=== PATIENT | female | born 1935 | race Caucasian/White ===

== ENCOUNTER 2017-04-01 14:21 | Emergency (ER) | payer MEDICARE ==
--- NOTE | 2017-04-01 14:35 | ERPHSYRPT ---
- History of Present Illness Time Seen by Provider: 04/01/17 14:30 Source: patient, family Exam Limitations: no limitations Physician History: The patient is an 81-year-old female brought in from home by her son where she lives alone for not being quite "right" in her head for 3-4 days and not eating for 3 days. She lives alone. The patient has no specific complaints. The son states she is confused. She has a cough. She did not receive an influenza vaccination this year. She denies nausea, vomiting, or diarrhea. She has a long time smoker. She has no doctor and takes no medicines. Timing/Duration: day(s) (4), gradual onset, worse Severity: moderate Modifying Factors: Improves With: nothing Associated Symptoms: cough, loss of appetite Allergies/Adverse Reactions: No Known Drug Allergies Allergy (Verified 04/01/17 14:40) Home Medications: No Home Meds 1 ea PO DAILY 10/04/11 [History] Hx Tetanus, Diphtheria Vaccination/Date Given: No Hx Influenza Vaccination/Date Given: No Hx Pneumococcal Vaccination/Date Given: No - Review of Systems Constitutional: Weakness Eyes: No Symptoms Ears, Nose, & Throat: No Symptoms Respiratory: Cough Cardiac: No Chest Pain, No Edema, No Syncope Abdominal/Gastrointestinal: No Abdominal Pain, No Nausea, No Vomiting, No Diarrhea Genitourinary Symptoms: No Dysuria Musculoskeletal: No Back Pain, No Neck Pain Skin: No Rash Neurological: No Dizziness, No Focal Weakness, No Sensory Changes Psychological: No Symptoms Endocrine: No Symptoms Hematologic/Lymphatic: No Symptoms Immunological/Allergic: No Symptoms All Other Systems: Reviewed and Negative - Past Medical History Pertinent Past Medical History: Yes - Past Surgical History Past Surgical History: No - Social History Smoking Status: Current every day smoker How long have you smoked: 1 Exposure to second hand smoke: Yes Drug Use: none Patient Lives Alone: No - Nursing Vital Signs Nursing Vital Signs: Initial Vital Signs Temperature 99.6 F 04/01/17 14:25 Pulse Rate 118 H 04/01/17 14:25 Respiratory Rate 18 04/01/17 14:25 Blood Pressure 167/99 04/01/17 14:25 O2 Sat by Pulse Oximetry 92 L 04/01/17 14:25 Pain Scale Pain Intensity 0 - Physical Exam General Appearance: no apparent distress, cachetic, thin Eye Exam: PERRL/EOMI, eyes nml inspection Ears, Nose, Throat Exam: dry mucous membranes Neck Exam: normal inspection, non-tender, supple, full range of motion Respiratory Exam: rhonchi Cardiovascular Exam: regular rate/rhythm, normal heart sounds, normal peripheral pulses Gastrointestinal/Abdomen Exam: soft, normal bowel sounds, No tenderness, No mass Pelvic Exam: not done Rectal Exam: not done Back Exam: normal inspection, normal range of motion, No CVA tenderness, No vertebral tenderness Extremity Exam: normal inspection, normal range of motion, pelvis stable Neurologic Exam: alert, oriented x 3, cooperative, normal mood/affect, nml cerebellar function, nml station & gait, sensation nml, No motor deficits Skin Exam: normal color, warm, dry, No rash Lymphatic Exam: No adenopathy SpO2 Interpretation: normal Oxygen Delivery: Room Air - Course EKG Interpreted by Me: Sinus Rhythm, NORMAL AXIS, NORMAL INTERVALS, NORMAL QRS, ST Elev (V3 only) - Radiology Exams Chest X-ray Interpretation: Interpreted by me, Infiltrates (infiltrate right mid lung , no comparison) Ordered Tests: Active Orders 24 hr Category Date Time Status EKG-ER Only STAT Care 04/01/17 14:39 Active IV Insertion STAT Care 04/01/17 14:39 Active CHEST 2 VIEWS (PA AND LAT) Stat Exams 04/01/17 14:39 Taken CBC W DIFF Stat Lab 04/01/17 14:50 Completed CMP Stat Lab 04/01/17 14:50 Completed CULTURE, THROAT Stat Lab 04/01/17 14:50 Received LIPASE Stat Lab 04/01/17 14:50 Completed Lactic Acid Stat Lab 04/01/17 14:58 Completed Manual Differential NC Stat Lab 04/01/17 14:50 Completed STREP SCREEN-BETA A Stat Lab 04/01/17 14:50 Completed TROPONIN Q3H Lab 04/01/17 14:50 Completed TROPONIN Q3H Lab 04/01/17 17:45 Ordered TROPONIN Q3H Lab 04/01/17 20:45 Ordered TROPONIN Q3H Lab 04/01/17 23:45 Ordered TROPONIN Q3H Lab 04/02/17 02:45 Ordered UA W/RFX UR CULTURE Stat Lab 04/01/17 14:39 Ordered Medication Summary Discontinued Medications Generic Name Dose Route Start Last Admin Trade Name Freq PRN Reason Stop Dose Admin Aspirin 324 mg 04/01/17 15:28 04/01/17 15:50 Baby Aspirin 81 Mg Chew PO 04/01/17 15:29 324 mg STAT ONE Administration Sodium Chloride 500 mls @ 999 mls/hr 04/01/17 14:39 04/01/17 14:55 Sodium Chloride 0.9% 1000 Ml IV 04/01/17 15:09 999 mls/hr .Q31M STA Administration Sodium Chloride Confirm 04/01/17 14:51 Sodium Chloride 0.9% 1000 Ml Administered 04/01/17 14:52 Dose 1,000 mls @ ud .ROUTE .STK-MED ONE Nitroglycerin 0.4 mg 04/01/17 15:28 04/01/17 15:50 Nitrostat 0.4 Mg (Ed) SL 04/01/17 15:29 0.4 mg STAT ONE Administration Ondansetron HCl 4 mg 04/01/17 14:39 04/01/17 14:56 Zofran 4 Mg/2 Ml Vial IV 04/01/17 14:40 4 mg STAT ONE Administration Ondansetron HCl Confirm 04/01/17 14:51 Zofran 4 Mg/2 Ml Vial Administered 04/01/17 14:52 Dose 4 mg .ROUTE .STK-MED ONE Lab/Rad Data: Laboratory Result Diagrams 04/01/17 14:50 04/01/17 14:50 Laboratory Results 04/01/17 04/01/17 04/01/17 Range/Units 14:58 14:50 14:50 WBC (4.0-10.5) K/mm3 RBC (4.1-5.4) M/mm3 Hgb (12.0-16.0) gm/dl Hct (35-47) % MCV (78-100) fl MCH (26-32) pg MCHC (32-36) g/dl RDW (11.5-14.0) % Plt Count (150-450) K/mm3 MPV (6-9.5) fl Segmented Neutrophils (36.0-66.0) % Lymphocytes (Manual) (24-44) % Monocytes (Manual) (0.0-12.0) % Differential Comment Platelet Estimate (NORMAL) Sodium (136-145) mEq/L Potassium (3.5-5.1) mEq/L Chloride (98-107) mEq/L Carbon Dioxide (21-32) mEq/L Anion Gap (5-15) MEQ/L BUN (9-20) mg/dL Creatinine (0.55-1.30) mg/dl Estimated GFR ML/MIN Glucose (70-110) MG/DL Lactic Acid 1.5 (0.4-2.0) Calcium (8.5-10.1) mg/dL Total Bilirubin (0.2-1.0) mg/dL AST (15-37) U/L ALT (12-78) U/L Alkaline Phosphatase (46-116) U/L Troponin I 2.076 H* (0.000-0.056) ng/ml Serum Total Protein (6.4-8.2) gm/dL Albumin (3.4-5.0) g/dL Lipase (73-393) U/L Influenza Type A Ag POSITIVE (NEGATIVE) Influenza Type B Ag NEGATIVE (NEGATIVE) RSV (PCR) NEGATIVE (Negative) Streptococcus Screen (Negative) 04/01/17 04/01/17 04/01/17 Range/Units 14:50 14:50 14:50 WBC 9.9 (4.0-10.5) K/mm3 RBC 5.18 (4.1-5.4) M/mm3 Hgb 15.6 (12.0-16.0) gm/dl Hct 44.8 (35-47) % MCV 86.5 (78-100) fl MCH 30.1 (26-32) pg MCHC 34.8 (32-36) g/dl RDW 13.3 (11.5-14.0) % Plt Count 216 (150-450) K/mm3 MPV 10.4 H (6-9.5) fl Segmented Neutrophils 84 H (36.0-66.0) % Lymphocytes (Manual) 14 L (24-44) % Monocytes (Manual) 2 (0.0-12.0) % Differential Comment NORMAL Platelet Estimate NORMAL (NORMAL) Sodium 134 L (136-145) mEq/L Potassium 3.3 L (3.5-5.1) mEq/L Chloride 92 L (98-107) mEq/L Carbon Dioxide 26.5 (21-32) mEq/L Anion Gap 18.7 H (5-15) MEQ/L BUN 28 H (9-20) mg/dL Creatinine 0.90 (0.55-1.30) mg/dl Estimated GFR > 60 ML/MIN Glucose 136 H (70-110) MG/DL Lactic Acid (0.4-2.0) Calcium 9.3 (8.5-10.1) mg/dL Total Bilirubin 0.70 (0.2-1.0) mg/dL AST 56 H (15-37) U/L ALT 24 (12-78) U/L Alkaline Phosphatase 74 (46-116) U/L Troponin I (0.000-0.056) ng/ml Serum Total Protein 7.3 (6.4-8.2) gm/dL Albumin 3.1 L (3.4-5.0) g/dL Lipase 160 (73-393) U/L Influenza Type A Ag (NEGATIVE) Influenza Type B Ag (NEGATIVE) RSV (PCR) (Negative) Streptococcus Screen NEGATIVE (Negative) - Progress Progress: unchanged Progress Note: 04/01/17 15:30 Pt has no complaints of chest pain or SOB. I did an EKG due to mild weakness for [address] elevation on V3 only. Will give ASA and NG SL and repeat EKG. 04/01/17 15:54 Repeat EKG again shows ST elevation in V3. I discussed pt with Dr Garcia at [facility] who accepts pt without calling a STEMI. Counseled pt/family regarding: lab results, diagnosis, rad results - Departure Time of Disposition: 15:52 Departure Disposition: Transfer (Transfer to [facility] ER per Dr Garcia.) Clinical Impression: Elevated troponin, Influenza A, Pulmonary infiltrate, Hypokalemia Condition: Stable Critical Care Time: No Referrals: LULU ROCKWELL [Primary Care Provider] -
[2017-04-01] MEDS ORDERED: Zofran 4 MG/2 ML VIAL IV ONE (14:39)
[2017-04-01] MEDS ORDERED: Zofran 4 MG/2 ML VIAL ONE (14:51)
[2017-04-01] MEDS ORDERED: Sodium Chloride 0.9% 1000 ML 1,000 ML ONE (14:51)
[2017-04-01 15:08] LABS: Granulocyte Absolute (ANC) 8.28 (1.4-6.9); Hematocrit 44.8 % (35-47); Hemoglobin 15.6 gm/dl (12.0-16.0); Mean Cell Volume 86.5 fl (78-100); Mean Corpuscular Hemoglobin 30.1 pg (26-32); Mean Corpuscular Hgb Concent. 34.8 g/dl (32-36); Mean Platelet Volume 10.4 fl (6-9.5); Platelet Count 216 K/mm3 (150-450); Red Blood Count 5.18 M/mm3 (4.1-5.4); Red Cell Distribution Width 13.3 % (11.5-14.0); White Blood Count 9.9 K/mm3 (4.0-10.5)
[2017-04-01 15:16] LABS: ALBUMIN 3.1 g/dL (3.4-5.0); ALKALINE PHOSPHATASE 74 U/L (46-116); ANION GAP 18.7 MEQ/L (5-15); BLOOD UREA NITROGEN 28 mg/dL (9-20); CHLORIDE 92 mEq/L (98-107); Calcium 9.3 mg/dL (8.5-10.1); Carbon Dioxide 26.5 mEq/L (21-32); EST GLOMERULAR FILTRATION RATE > 60 ML/MIN; Glucose 136 MG/DL (70-110); LIPASE 160 U/L (73-393); Potassium 3.3 mEq/L (3.5-5.1); SGOT/AST 56 U/L (15-37); SGPT/ALT 24 U/L (12-78); SODIUM 134 mEq/L (136-145); Total Protein 7.3 gm/dL (6.4-8.2)
[2017-04-01] MEDS ORDERED: Nitrostat 0.4 MG (ED) SL ONE ×2 (15:28→15:57)
[2017-04-01] MEDS ORDERED: BABY ASPIRIN 81 MG CHEW PO ONE (15:28)
[2017-04-01 15:33] LABS: Lymphocytes 14 % (24-44); Monocyte 2 % (0.0-12.0); Neutrophils 84 % (36.0-66.0); Platelet Estimate NORMAL (NORMAL); Total Cells Counted 100
[2017-04-01 15:41] LABS: INFLUENZA A POSITIVE (NEGATIVE); INFLUENZA B NEGATIVE (NEGATIVE); RESPIRATORY SYNCTIAL VIRUS NEGATIVE (Negative)
[2017-04-01 15:55] VITALS: BP 159/75; PULSE 104; O2SAT 97
[2017-04-01] MEDS ORDERED: BABY ASPIRIN 81 MG CHEW ONE (15:57)
[2017-04-01 17:08] LABS: Appearance SLIGHTLY CLOUDY (CLEAR); Bacteria MANY /HPF (NEGATIVE); Bilirubin NEGATIVE (NEGATIVE); Blood 250 Ery/ul (0-5); Epithelial Cells FEW /HPF (FEW); Glucose NEGATIVE (NEGATIVE); Ketones SMALL (NEGATIVE); Leukocyte Esterase NEGATIVE (NEGATIVE); Mucus SLIGHT /HPF (NEGATIVE); Nitrite NEGATIVE (NEGATIVE); Protein,Urine Dip 500 (Negative); Specific Gravity 1.015 (1.005-1.025); Urobilinogen NORMAL mg/dL (0-1)
--- NOTE | 2017-04-01 21:51 | XRAY ---
Indication: Cough. Weakness. Comparison: None PA/lateral chest hyperinflated with right middle lobe infiltrate/atelectasis. Remaining heart and left lung unremarkable. Bony thorax intact with mild osteopenia and degenerative changes. Impression: 1. Right middle lobe infiltrate/atelectasis. Correlate clinically. 2. COPD.
== END 2017-04-01 16:19 | disposition short-term general hospital (02) ==
LOC: ED 14:21
DX: J10.00 Influenza due to other identified influenza virus with unspecified type of pneumonia (principal); R77.8 Other specified abnormalities of plasma proteins; E87.6 Hypokalemia; R53.1 Weakness
CPT/HCPCS: 36000; 36415; 71046; 80053; 81000; 83605; 83690; 84484; 85025; 87070; 87086; 87430; 87631; 93005; 96360; 96374; 99285; J2405; A9270-GY

== ENCOUNTER 2017-04-17 11:56 | Observation (INO) | payer MEDICARE ==
[2017-04-17] MEDS ORDERED: MORPHINE SULFATE 2 MG INJ IV PRN (12:54)
[2017-04-17] MEDS ORDERED: Sodium Chloride 0.9% 1000 ML 1,000 ML IV STA (12:54)
[2017-04-17] MEDS ORDERED: Zofran 4 MG/2 ML VIAL IV PRN (12:54)
[2017-04-17 13:28] LABS: BASOPHIL % 0.3 % (0.0-0.4); Basophil (Absolute #) 0.03 (0-0.4); Granulocytes % 75.6 % (36.0-66.0); Hematocrit 45.2 % (35-47); Hemoglobin 14.5 gm/dl (12.0-16.0); Lymphocyte (Absolute #) 1.47 (1.0-4.6); Mean Cell Volume 91.7 fl (78-100); Mean Corpuscular Hemoglobin 29.4 pg (26-32); Mean Corpuscular Hgb Concent. 32.1 g/dl (32-36); Mean Platelet Volume 10.1 fl (6-9.5); Monocyte (Absolute #) 0.79 (0.0-1.3); Monocytes % 8.1 % (0.0-12.0); Platelet Count 265 K/mm3 (150-450); Red Blood Count 4.93 M/mm3 (4.1-5.4); Red Cell Distribution Width 14.2 % (11.5-14.0); White Blood Count 9.8 K/mm3 (4.0-10.5)
[2017-04-17 14:06] LABS: ALBUMIN 3.5 g/dL (3.5-5.0); ALKALINE PHOSPHATASE 82 U/L (38-126); AMYLASE 122 U/L (30-110); ANION GAP 13.2 MEQ/L (5-15); BLOOD UREA NITROGEN 19 mg/dL (7-17); CHLORIDE 103 mmol/L (98-107); Calcium 9.2 mg/dL (8.4-10.2); Carbon Dioxide 27 mmol/L (22-30); Creatinine 1 0.66 mg/dL (0.52-1.04); Glucose 75 mg/dL (74-106); LIPASE 325 U/L (23-300); Potassium 3.7 mmol/L (3.5-5.1); SGOT/AST 55 U/L (14-36); SGPT/ALT 30 U/L (0-35); SODIUM 139 mmol/L (137-145); Total Protein 6.3 gm/dL (6.3-8.2)
[2017-04-17 14:39] LABS: Slide Review 1 YES
--- NOTE | 2017-04-17 14:45 | XRAY ---
Indication: Epigastric pain. Multiple contiguous axial images obtained through the abdomen and pelvis without contrast as ordered. Comparison: None Lung bases demonstrates minimal bilateral atelectasis/scarring. No infiltrate or effusion. Heart is not enlarged. Small hiatal hernia. Noncontrasted stomach and bowel loops appear nonobstructed. Normal appendix. No free fluid/air. Urinary bladder markedly distended concerning for outlet obstruction versus neurogenic bladder. Scattered hepatic/splenic calcified granulomas. Remaining liver, gallbladder, pancreas, spleen, adrenal glands, kidneys, ureters, and uterus appear unremarkable for noncontrast exam. Moderate scattered vascular calcifications. Distal aorta demonstrates 2 fusiform aneurysms both measuring 3.5 x 3.5 cm seen one after the other. Osseous structures intact with mild degenerative changes throughout the spine greatest at the L4-S1 levels. Impression: 1. Abnormally distended urinary bladder. Rule out outlet obstruction versus neurogenic bladder. 2. 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 3. Small hiatal hernia and evidence for old granulomatous disease. CT DI 8.07
[2017-04-17] MEDS: Sodium Chloride 0.9% 1000 ML 1,000 ML IV SCH (14:59)
[2017-04-17] MEDS ORDERED: Nitrostat 0.4 MG Tablet SL PRN (15:30)
[2017-04-17 15:46] LABS: Appearance CLEAR (CLEAR); Bilirubin NEGATIVE (NEGATIVE); Blood NEGATIVE Ery/ul (0-5); Glucose NEGATIVE (NEGATIVE); Ketones NEGATIVE (NEGATIVE); Leukocyte Esterase NEGATIVE (NEGATIVE); Nitrite NEGATIVE (NEGATIVE); Protein,Urine Dip NEGATIVE (Negative); Specific Gravity 1.005 (1.005-1.025); Urobilinogen NORMAL mg/dL (0-1)
[2017-04-17] MEDS: Zestril 10 MG PO SCH (15:49)
[2017-04-17] MEDS: Nicoderm CQ 21 MG TOP SCH (15:49)
[2017-04-17 15:54] LABS: TROPONIN 0.031 ng/mL (0.000-0.034)
[2017-04-17] MEDS: DELTASONE 10 MG PO SCH (16:08)
[2017-04-17] MEDS: DUONEB 0.5-3 MG/3 ml Neb IH SCH (20:02)
[2017-04-17] MEDS: Pepcid 20 MG PO SCH (21:25)
[2017-04-17] MEDS: Lopressor 25MG Tab PO SCH (21:25)
[2017-04-17] MEDS ORDERED: ZOCOR 20MG PO SCH (22:00)
[2017-04-17] MEDS ORDERED: Klonopin 0.5 MG PO SCH (22:00)
[2017-04-17] MEDS ORDERED: LIPITOR 40MG PO SCH (22:00)
[2017-04-18] MEDS: Sodium Chloride 0.9% 1000 ML 1,000 ML IV SCH ×2 (01:06→11:11)
[2017-04-18] MEDS: DUONEB 0.5-3 MG/3 ml Neb IH SCH (07:57)
[2017-04-18] MEDS: Pepcid 20 MG PO SCH (09:56)
[2017-04-18] MEDS: DELTASONE 10 MG PO SCH (09:56)
[2017-04-18] MEDS: Lopressor 25MG Tab PO SCH (09:56)
[2017-04-18] MEDS: Zestril 10 MG PO SCH (09:56)
[2017-04-18] MEDS: Nicoderm CQ 21 MG TOP SCH (10:08)
[2017-04-18 11:10] VITALS: BP 148/62; PULSE 76; O2SAT 96
--- NOTE | 2017-04-18 11:52 | PCM.SSS ---
History of Present Illness - Chief Complaint Chief Complaint: epigastric abdominal pain for 2 days History of Present Illness: is a 81 year old female.came with abdominal pain. - Review of Systems Constitutional: No Fever, No Chills Eyes: No Symptoms Ears, Nose, & Throat: No Symptoms Respiratory: No Cough, No Short Of Breath Cardiac: No Chest Pain, No Edema, No Syncope Abdominal/Gastrointestinal: No Abdominal Pain, No Nausea, No Vomiting, No Diarrhea Genitourinary Symptoms: No Dysuria Musculoskeletal: No Back Pain, No Neck Pain Skin: No Rash Neurological: No Dizziness, No Focal Weakness, No Sensory Changes Psychological: No Symptoms Endocrine: No Symptoms Hematologic/Lymphatic: No Symptoms Immunological/Allergic: No Symptoms Medications & Allergies Home Medications: Home Medication List Albuterol/Ipratropium 3ml Neb* [DUONEB 0.5-3 MG/3 ml Neb] 3 ml IH TID [History Confirmed 04/17/17] Aspirin [Aspirin EC] 1 tab PO DAILY 04/17/17 [History Confirmed 04/17/17] Atorvastatin Calcium [Lipitor 40Mg] 40 mg PO HS 04/17/17 [History Confirmed 01/23] Clonazepam [Clonazepam] 0.25 mg PO HS 04/17/17 [History Confirmed 04/17/17] Famotidine 20 mg [Pepcid 20 MG] 20 mg PO BID 04/17/17 [History Confirmed 04/17/17] Lisinopril [Lisinopril] 10 mg PO DAILY 04/17/17 [History Confirmed 04/17/17] Metoprolol Tartrate [Metoprolol Tartrate] 25 mg PO BID 04/17/17 [History Confirmed 04/17/17] Nicotine [Nicotine Patch] 21 mg TOP DAILY 04/17/17 [History Confirmed 04/17/17] Nitroglycerin [Nitroglycerin] 0.4 mg SL UD 04/17/17 [History Confirmed 04/17/17] Prednisone 10 mg [Deltasone 10 mg] 10 mg PO DAILY 04/17/17 [History Confirmed 04/17/17] Allergies/Adverse Reactions: Allergies Allergy/AdvReac Type Severity Reaction Status Date / Time metronidazole [From Flagyl] AdvReac Severe Verified 04/17/17 12:54 - Past Medical History Past Medical History: Yes Neurological History: No Pertinent History ENT History: Cataracts Cardiac History: High Cholesterol, Hypertension, Myocardial Infarction (ME) Respiratory History: CHF, COPD Musculoskelatal History: Arthritis, Fractures GI Medical History: No Pertinent History, Ulcer History: No Pertinent History Pyscho-Social History: Anxiety - Past Surgical History Past Surgical History: No Other Surgical History: L LE fx - Social History Smoking Status: Current every day smoker How long have you smoked: 1 Exposure to second hand smoke: Yes Alcohol: None Drug Use: none - Physical Exam Vital Signs: Vital Signs - 24 hr Temp Pulse Resp BP Pulse Ox 04/18/17 11:09 98.2 F 76 16 148/62 96 04/18/17 09:16 114 H 20 97 04/18/17 08:01 87 18 99 04/18/17 07:11 98.1 F 77 16 150/65 98 04/18/17 04:00 98.3 F 77 18 113/56 99 04/18/17 00:00 97.9 F 88 18 102/50 95 04/17/17 20:25 99 H 16 98 04/17/17 20:03 103 H 16 90 L 04/17/17 20:00 98.6 F 108 H 18 144/65 89 L 04/17/17 15:46 98.0 F 88 16 135/60 91 L 04/17/17 13:00 98.4 F 100 H 16 207/106 92 L 04/17/17 12:44 98.4 F 100 H 207/106 04/17/17 12:42 98.4 F 100 H 16 207/106 92 L Oxygen-Last 24 hours O2 Percentage 2 Liters = 28% O2 Percentage 2 Liters = 28% O2 Percentage 2 Liters = 28% O2 Percentage 2 Liters = 28% General Appearance: no apparent distress, alert Neurologic Exam: alert, oriented x 3, cooperative, normal mood/affect, nml cerebellar function, nml station & gait, sensation nml, No motor deficits Eye Exam: PERRL/EOMI, eyes nml inspection Ears, Nose, Throat Exam: normal ENT inspection, TMs normal, pharynx normal, moist mucous membranes Neck Exam: normal inspection, non-tender, supple, full range of motion Respiratory Exam: normal breath sounds, lungs clear, No respiratory distress Cardiovascular Exam: regular rate/rhythm, normal heart sounds, normal peripheral pulses Gastrointestinal/Abdomen Exam: soft, normal bowel sounds, No tenderness, No mass Back Exam: normal inspection, normal range of motion, No CVA tenderness, No vertebral tenderness Extremity Exam: normal inspection, normal range of motion, pelvis stable Skin Exam: normal color, warm, dry, No rash Lymphatic Exam: No adenopathy Results - Labs Lab/Micro Results: Lab Results-Last 24 Hours 04/17/17 04/17/17 04/17/17 Range/Units 12:54 13:26 13:32 WBC 9.8 (4.0-10.5) K/mm3 RBC 4.93 (4.1-5.4) M/mm3 Hgb 14.5 (12.0-16.0) gm/dl Hct 45.2 (35-47) % MCV 91.7 (78-100) fl MCH 29.4 (26-32) pg MCHC 32.1 (32-36) g/dl RDW 14.2 H (11.5-14.0) % Plt Count 265 (150-450) K/mm3 MPV 10.1 H (6-9.5) fl Gran % 75.6 H (36.0-66.0) % Lymphocytes % 15.0 L (24.0-44.0) % Monocytes % 8.1 (0.0-12.0) % Eosinophils % 1.0 (0.00-5.0) % Basophils % 0.3 (0.0-0.4) % Basophils # 0.03 (0-0.4) Sodium 139 (137-145) mmol/L Potassium 3.7 (3.5-5.1) mmol/L Chloride 103 (98-107) mmol/L Carbon Dioxide 27 (22-30) mmol/L Anion Gap 13.2 (5-15) MEQ/L BUN 19 H (7-17) mg/dL Creatinine 0.66 (0.52-1.04) mg/dL Estimated GFR > 60 ML/MIN Glucose 75 (74-106) mg/dL Lactic Acid 1.8 (0.4-2.0) Calcium 9.2 (8.4-10.2) mg/dL Total Bilirubin 0.80 (0.2-1.3) mg/dL AST 55 H (14-36) U/L ALT 30 (0-35) U/L Alkaline Phosphatase 82 (38-126) U/L Troponin I 0.031 (0.000-0.034) ng/mL Serum Total Protein 6.3 (6.3-8.2) gm/dL Albumin 3.5 (3.5-5.0) g/dL Amylase 122 H (30-110) U/L Lipase 325 H (23-300) U/L Ur Collection Type Urine Color (YELLOW) Urine Appearance (CLEAR) Urine pH (5-6) Ur Specific [place] (1.005-1.025) Urine Protein (Negative) Urine Ketones (NEGATIVE) Urine Blood (0-5) Guero/ul Urine Nitrite (NEGATIVE) Urine Bilirubin (NEGATIVE) Urine Urobilinogen (0-1) mg/dL Ur Leukocyte Esterase (NEGATIVE) Urine Glucose (NEGATIVE) mg/dL Slides for Path Review YES Specimen Received 04/17/17 Range/Units 15:30 WBC (4.0-10.5) K/mm3 RBC (4.1-5.4) M/mm3 Hgb (12.0-16.0) gm/dl Hct (35-47) % MCV (78-100) fl MCH (26-32) pg MCHC (32-36) g/dl RDW (11.5-14.0) % Plt Count (150-450) K/mm3 MPV (6-9.5) fl Gran % (36.0-66.0) % Lymphocytes % (24.0-44.0) % Monocytes % (0.0-12.0) % Eosinophils % (0.00-5.0) % Basophils % (0.0-0.4) % Basophils # (0-0.4) Sodium (137-145) mmol/L Potassium (3.5-5.1) mmol/L Chloride (98-107) mmol/L Carbon Dioxide (22-30) mmol/L Anion Gap (5-15) MEQ/L BUN (7-17) mg/dL Creatinine (0.52-1.04) mg/dL Estimated GFR ML/MIN Glucose (74-106) mg/dL Lactic Acid (0.4-2.0) Calcium (8.4-10.2) mg/dL Total Bilirubin (0.2-1.3) mg/dL AST (14-36) U/L ALT (0-35) U/L Alkaline Phosphatase (38-126) U/L Troponin I (0.000-0.034) ng/mL Serum Total Protein (6.3-8.2) gm/dL Albumin (3.5-5.0) g/dL Amylase (30-110) U/L Lipase (23-300) U/L Ur Collection Type CATH Urine Color YELLOW (YELLOW) Urine Appearance CLEAR (CLEAR) Urine pH 7.0 (5-6) Ur Specific [place] 1.005 (1.005-1.025) Urine Protein NEGATIVE (Negative) Urine Ketones NEGATIVE (NEGATIVE) Urine Blood NEGATIVE (0-5) Guero/ul Urine Nitrite NEGATIVE (NEGATIVE) Urine Bilirubin NEGATIVE (NEGATIVE) Urine Urobilinogen NORMAL (0-1) mg/dL Ur Leukocyte Esterase NEGATIVE (NEGATIVE) Urine Glucose NEGATIVE (NEGATIVE) mg/dL Slides for Path Review Specimen Received 04/17/17 1540 Microbiology 04/17/17 15:30 Urine Culture - Preliminary Catherized NO GROWTH TO DATE - Radiology Impressions Radiology Exams & Impressions: Radiology Procedures Category Date Time Status ABDOMEN AND PELVIS W/0 CONTRAS [CT] Stat Exams 04/17/17 12:54 Completed - Other Procedures and Tests Respiratory Therapy 04/17/17 19:00 neb [Respiratory Nebulizer] TID 04/17/17 20:25 Oxygen NASAL CANNULA 2 lpm Assessment/Plan (1) Abdominal pain Current Visit: Yes Status: Resolved Qualifiers: Abdominal location: epigastric Qualified Code(s): R10.13 - Epigastric pain Code(s): R10.9 - UNSPECIFIED ABDOMINAL PAIN (2) Coronary arteriosclerosis Current Visit: Yes Status: Chronic (3) Abdominal aortic aneurysm (AAA) 30 to 34 mm in diameter Current Visit: Yes Status: Chronic Code(s): I71.4 - ABDOMINAL AORTIC ANEURYSM, WITHOUT RUPTURE (4) COPD (chronic obstructive pulmonary disease) Current Visit: Yes Status: Acute (5) Peripheral angiopathy Current Visit: Yes Status: Acute Code(s): I73.9 - PERIPHERAL VASCULAR DISEASE, UNSPECIFIED Hospital Summary - Hospital Course Hospital Course: Chief Complaint Diagnosis epigastric abdominal pain for 2 days Allergies Allergy/AdvReac Type Severity Reaction Status Date / Time metronidazole [From Flagyl] AdvReac Severe Verified 04/17/17 12:54 Vital Signs (Last 24 hours) Temp Pulse Resp BP Pulse Ox 04/18/17 11:09 98.2 F 76 16 148/62 96 04/18/17 09:16 114 H 20 97 04/18/17 08:01 87 18 99 04/18/17 07:11 98.1 F 77 16 150/65 98 04/18/17 04:00 98.3 F 77 18 113/56 99 04/18/17 00:00 97.9 F 88 18 102/50 95 04/17/17 20:25 99 H 16 98 04/17/17 20:03 103 H 16 90 L 04/17/17 20:00 98.6 F 108 H 18 144/65 89 L 04/17/17 15:46 98.0 F 88 16 135/60 91 L 04/17/17 13:00 98.4 F 100 H 16 207/106 92 L 04/17/17 12:44 98.4 F 100 H 207/106 04/17/17 12:42 98.4 F 100 H 16 207/106 92 L Home Medications Medication Instructions Recorded Confirmed Last Taken Type Albuterol/Ipratropium 3ml Neb* 3 ml IH TID 04/17/17 04/17/17 Unknown History [DUONEB 0.5-3 MG/3 ml Neb] Aspirin [Aspirin EC] 1 tab PO DAILY 04/17/17 04/17/17 Unknown History Atorvastatin Calcium [Lipitor 40Mg] 40 mg PO HS 04/17/17 04/17/17 Unknown History Clonazepam [Clonazepam] 0.25 mg PO HS 04/17/17 04/17/17 Unknown History Famotidine 20 mg [Pepcid 20 20 mg PO BID 04/17/17 04/17/17 Unknown History MG] Lisinopril [Lisinopril] 10 mg PO DAILY 04/17/17 04/17/17 Unknown History Metoprolol Tartrate [Metoprolol 25 mg PO BID 04/17/17 04/17/17 Unknown History Tartrate] Nicotine [Nicotine Patch] 21 mg TOP DAILY 04/17/17 04/17/17 Unknown History Nitroglycerin [Nitroglycerin] 0.4 mg SL UD 04/17/17 04/17/17 Unknown History Prednisone 10 mg [Deltasone 10 10 mg PO DAILY 04/17/17 04/17/17 Unknown History mg] Current Medications Generic Name Dose Route Start Last Admin Trade Name Joy PRN Reason Stop Dose Admin Albuterol/Ipratropium 3 ml 04/17/17 16:00 04/18/17 07:57 Duoneb 0.5-3 Mg/3 Ml Neb IH 05/17/17 15:59 3 ml TIDRT NELSON Administration Clonazepam 0.25 mg 04/17/17 22:00 04/17/17 21:26 Klonopin 0.5 Mg PO 05/17/17 21:59 0.25 mg HS NELSON Administration Famotidine 20 mg 04/17/17 22:00 04/18/17 09:56 Pepcid 20 Mg PO 05/17/17 21:59 20 mg BID NELSON Administration Sodium Chloride 1,000 mls @ 100 mls/hr 04/17/17 13:00 04/18/17 11:11 Sodium Chloride 0.9% 1000 Ml IV 05/17/17 12:59 100 mls/hr .Q10H NELSON Administration Lisinopril 10 mg 04/17/17 16:00 04/18/17 09:56 Zestril 10 Mg PO 05/17/17 15:59 10 mg DAILY NELSON Administration Metoprolol Tartrate 25 mg 04/17/17 22:00 04/18/17 09:56 Lopressor 25mg Tab PO 05/17/17 21:59 25 mg BID NELSON Administration Morphine Sulfate 2 mg 04/17/17 12:54 04/17/17 13:51 Morphine Sulfate 2 Mg Inj IV 04/22/17 12:53 2 mg Q2H PRN PRN Administration PAIN Nicotine 21 mg 04/17/17 16:00 04/18/17 10:08 Nicoderm Cq 21 Mg TOP 05/17/17 15:59 21 mg DAILY NELSON Administration Nitroglycerin 0.4 mg 04/17/17 15:30 Nitrostat 0.4 Mg Tablet SL 05/17/17 15:29 UD PRN Ondansetron HCl 4 mg 04/17/17 12:54 04/17/17 13:51 Zofran 4 Mg/2 Ml Vial IV 05/17/17 12:53 4 mg Q4H PRN PRN Administration NAUSEA/VOMITING Prednisone 10 mg 04/17/17 16:00 04/18/17 09:56 Deltasone 10 Mg PO 05/17/17 15:59 10 mg DAILY NELSON Administration Simvastatin 40 mg 04/17/17 22:00 04/17/17 21:27 Zocor 20mg PO 05/17/17 21:59 40 mg HS NELSON Administration Discontinued Medications Generic Name Dose Route Start Last Admin Trade Name Freq PRN Reason Stop Dose Admin Sodium Chloride 1,000 mls @ 999 mls/hr 04/17/17 12:54 04/17/17 13:51 Sodium Chloride 0.9% 1000 Ml IV 04/17/17 13:54 999 mls/hr .Q1H1M STA Administration Intake & Output (Last 24 hours) 04/15/17 04/16/17 04/17/17 04/18/17 10:59 11:59 11:59 11:59 Intake Total 2529 Output Total 1700 Balance 829 Weight 39.9 kg Microbiology Results (Last 24 hours) 04/17/17 15:30 Catherized Urine Culture - Preliminary NO GROWTH TO DATE Laboratory Results (Last 24 hours) 04/17/17 04/17/17 04/17/17 15:30 13:32 13:26 WBC 9.8 RBC 4.93 Hgb 14.5 Hct 45.2 MCV 91.7 MCH 29.4 MCHC 32.1 RDW 14.2 H Plt Count 265 MPV 10.1 H Gran % 75.6 H Lymphocytes % 15.0 L Monocytes % 8.1 Eosinophils % 1.0 Basophils % 0.3 Basophils # 0.03 Sodium 139 Potassium 3.7 Chloride 103 Carbon Dioxide 27 Anion Gap 13.2 BUN 19 H Creatinine 0.66 Estimated GFR > 60 Glucose 75 Lactic Acid Calcium 9.2 Total Bilirubin 0.80 AST 55 H ALT 30 Alkaline Phosphatase 82 Troponin I 0.031 Serum Total Protein 6.3 Albumin 3.5 Amylase 122 H Lipase 325 H Ur Collection Type CATH Urine Color YELLOW Urine Appearance CLEAR Urine pH 7.0 Ur Specific [place] 1.005 Urine Protein NEGATIVE Urine Ketones NEGATIVE Urine Blood NEGATIVE Urine Nitrite NEGATIVE Urine Bilirubin NEGATIVE Urine Urobilinogen NORMAL Ur Leukocyte Esterase NEGATIVE Urine Glucose NEGATIVE Slides for Path Review YES Specimen Received 04/17/17 1540 04/17/17 12:54 WBC RBC Hgb Hct MCV MCH MCHC RDW Plt Count MPV Gran % Lymphocytes % Monocytes % Eosinophils % Basophils % Basophils # Sodium Potassium Chloride Carbon Dioxide Anion Gap BUN Creatinine Estimated GFR Glucose Lactic Acid 1.8 Calcium Total Bilirubin AST ALT Alkaline Phosphatase Troponin I Serum Total Protein Albumin Amylase Lipase Ur Collection Type Urine Color Urine Appearance Urine pH Ur Specific [place] Urine Protein Urine Ketones Urine Blood Urine Nitrite Urine Bilirubin Urine Urobilinogen Ur Leukocyte Esterase Urine Glucose Slides for Path Review Specimen Received Orders (Last 24 hours) Category Date Time Status Up Ad Priscilla TOLERATED Activity 04/17/17 12:58 Active Catheter Care Record Q6H Care 04/17/17 15:10 Active Certification ROUTINE Care 04/17/17 12:53 Active Code Status Order ROUTINE Care 04/17/17 12:55 Active Vizcarra [Catheter-Clover Vizcarra] STAT Care 04/17/17 15:[address] in Observation ROUTINE Care 04/17/17 12:55 Active NPO Diet 04/17/17 12:57 Completed Regular Diet Diet 04/18/17 Lunch Active ABDOMEN AND PELVIS W/0 CONTRAS [CT] Stat Exams 04/17/17 12:54 Completed AMYLASE Stat Lab 04/17/17 13:32 Completed CBC W DIFF Stat Lab 04/17/17 13:26 Completed CMP Stat Lab 04/17/17 13:32 Completed CULTURE,URINE Urgent Lab 04/17/17 15:30 Results LIPASE Stat Lab 04/17/17 13:32 Completed Lactic Acid Stat Lab 04/17/17 12:54 Completed TROPONIN Stat Lab 04/17/17 13:32 Completed UA Urgent Lab 04/17/17 15:30 Completed Albuterol/Ipratropium 3ml Neb* [DUONEB 0.5-3 MG/3 ml Med 04/17/17 16:00 Active Neb] 3 ml IH TIDRT Clonazepam 0.5 mg [Klonopin 0.5 MG] Med 04/17/17 22:00 Active 0.25 mg PO HS Famotidine 20 mg [Pepcid 20 MG] Med 04/17/17 22:00 Active 20 mg PO BID Lisinopril 10 mg [Zestril 10 MG] Med 04/17/17 16:00 Active 10 mg PO DAILY Metoprolol Tartrate 25 mg [Lopressor 25MG Tab] Med 04/17/17 22:00 Active 25 mg PO BID Morphine Sulfate 2 mg Inj Med 04/17/17 12:54 Active 2 mg IV Q2H PRN PRN NaCl 0.9% 1000 ml [Sodium Chloride 0.9% 1000 ML] 1,000 Med 04/17/17 13:00 Active ml IV 100 mls/hr NaCl 0.9% 1000 ml [Sodium Chloride 0.9% 1000 ML] 1,000 Med 04/17/17 12:54 Discontinued ml IV 999 mls/hr Nicotine 21 mg [Nicoderm CQ 21 MG] Med 04/17/17 16:00 Active 21 mg TOP DAILY Nitroglycerin 0.4 mg Tablet [Nitrostat 0.4 MG Tablet Med 04/17/17 15:30 Active ] 0.4 mg SL UD PRN Ondansetron HCl 4 mg/2 ml [Zofran 4 MG/2 ML VIAL] Med 04/17/17 12:54 Active 4 mg IV Q4H PRN PRN Prednisone 10 mg [Deltasone 10 mg] Med 04/17/17 16:00 Active 10 mg PO DAILY Simvastatin 20Mg [Zocor 20Mg] Med 04/17/17 22:00 Active 40 mg PO HS Oxygen NASAL CANNULA 2 lpm RT 04/17/17 20:25 Active neb [Respiratory Nebulizer] TID RT 04/17/17 19:00 Active Patient Care Notes (Last 24 hours) Patient was admitted as observation. all labs and CT scan reviewed. - Vitals & Intake/Output Vital Signs: Vital Signs Temperature 98.2 F 04/18/17 11:09 Pulse Rate 76 04/18/17 11:09 Respiratory Rate 16 04/18/17 11:09 Blood Pressure 148/62 04/18/17 11:09 O2 Sat by Pulse Oximetry 96 04/18/17 11:09 Oxygen-Last Documented O2 Percentage 2 Liters = 28% Intake & Output: Intake & Output 04/15/17 04/16/17 04/17/17 04/18/17 10:59 11:59 11:59 11:59 Intake Total 2529 Output Total 1700 Balance 829 Weight 39.9 kg - Lab Result Diagrams: 04/17/17 13:26 04/17/17 13:32 Lab Results-Last 24 Hrs: Lab Results-Last 24 Hours 04/17/17 04/17/17 04/17/17 Range/Units 12:54 13:26 13:32 WBC 9.8 (4.0-10.5) K/mm3 RBC 4.93 (4.1-5.4) M/mm3 Hgb 14.5 (12.0-16.0) gm/dl Hct 45.2 (35-47) % MCV 91.7 (78-100) fl MCH 29.4 (26-32) pg MCHC 32.1 (32-36) g/dl RDW 14.2 H (11.5-14.0) % Plt Count 265 (150-450) K/mm3 MPV 10.1 H (6-9.5) fl Gran % 75.6 H (36.0-66.0) % Lymphocytes % 15.0 L (24.0-44.0) % Monocytes % 8.1 (0.0-12.0) % Eosinophils % 1.0 (0.00-5.0) % Basophils % 0.3 (0.0-0.4) % Basophils # 0.03 (0-0.4) Sodium 139 (137-145) mmol/L Potassium 3.7 (3.5-5.1) mmol/L Chloride 103 (98-107) mmol/L Carbon Dioxide 27 (22-30) mmol/L Anion Gap 13.2 (5-15) MEQ/L BUN 19 H (7-17) mg/dL Creatinine 0.66 (0.52-1.04) mg/dL Estimated GFR > 60 ML/MIN Glucose 75 (74-106) mg/dL Lactic Acid 1.8 (0.4-2.0) Calcium 9.2 (8.4-10.2) mg/dL Total Bilirubin 0.80 (0.2-1.3) mg/dL AST 55 H (14-36) U/L ALT 30 (0-35) U/L Alkaline Phosphatase 82 (38-126) U/L Troponin I 0.031 (0.000-0.034) ng/mL Serum Total Protein 6.3 (6.3-8.2) gm/dL Albumin 3.5 (3.5-5.0) g/dL Amylase 122 H (30-110) U/L Lipase 325 H (23-300) U/L Ur Collection Type Urine Color (YELLOW) Urine Appearance (CLEAR) Urine pH (5-6) Ur Specific [place] (1.005-1.025) Urine Protein (Negative) Urine Ketones (NEGATIVE) Urine Blood (0-5) Guero/ul Urine Nitrite (NEGATIVE) Urine Bilirubin (NEGATIVE) Urine Urobilinogen (0-1) mg/dL Ur Leukocyte Esterase (NEGATIVE) Urine Glucose (NEGATIVE) mg/dL Slides for Path Review YES Specimen Received 04/17/17 Range/Units 15:30 WBC (4.0-10.5) K/mm3 RBC (4.1-5.4) M/mm3 Hgb (12.0-16.0) gm/dl Hct (35-47) % MCV (78-100) fl MCH (26-32) pg MCHC (32-36) g/dl RDW (11.5-14.0) % Plt Count (150-450) K/mm3 MPV (6-9.5) fl Gran % (36.0-66.0) % Lymphocytes % (24.0-44.0) % Monocytes % (0.0-12.0) % Eosinophils % (0.00-5.0) % Basophils % (0.0-0.4) % Basophils # (0-0.4) Sodium (137-145) mmol/L Potassium (3.5-5.1) mmol/L Chloride (98-107) mmol/L Carbon Dioxide (22-30) mmol/L Anion Gap (5-15) MEQ/L BUN (7-17) mg/dL Creatinine (0.52-1.04) mg/dL Estimated GFR ML/MIN Glucose (74-106) mg/dL Lactic Acid (0.4-2.0) Calcium (8.4-10.2) mg/dL Total Bilirubin (0.2-1.3) mg/dL AST (14-36) U/L ALT (0-35) U/L Alkaline Phosphatase (38-126) U/L Troponin I (0.000-0.034) ng/mL Serum Total Protein (6.3-8.2) gm/dL Albumin (3.5-5.0) g/dL Amylase (30-110) U/L Lipase (23-300) U/L Ur Collection Type CATH Urine Color YELLOW (YELLOW) Urine Appearance CLEAR (CLEAR) Urine pH 7.0 (5-6) Ur Specific [place] 1.005 (1.005-1.025) Urine Protein NEGATIVE (Negative) Urine Ketones NEGATIVE (NEGATIVE) Urine Blood NEGATIVE (0-5) Guero/ul Urine Nitrite NEGATIVE (NEGATIVE) Urine Bilirubin NEGATIVE (NEGATIVE) Urine Urobilinogen NORMAL (0-1) mg/dL Ur Leukocyte Esterase NEGATIVE (NEGATIVE) Urine Glucose NEGATIVE (NEGATIVE) mg/dL Slides for Path Review Specimen Received 04/17/17 1540 Micro Results-Entire Visit: Microbiology 04/17/17 15:30 Urine Culture - Preliminary Catherized NO GROWTH TO DATE - Radiology Exams Ordered Rad Exams-Entire Visit: Radiology Procedures Category Date Time Status ABDOMEN AND PELVIS W/0 CONTRAS [CT] Stat Exams 04/17/17 12:54 Completed - Procedures and Test Procedures and Tests throughout Hospitalization: Therapy Orders & Screens 04/17/17 19:00 neb [Respiratory Nebulizer] TID Comment: Diagnosis: epigastric abdominal pain 04/17/17 20:25 Oxygen NASAL CANNULA 2 lpm Comment: Diagnosis: epigastric abdominal pain - Discharge Discharge Date: 04/18/17 Disposition: Home, Self-Care Condition: Stable Prescriptions: No Action Nitroglycerin [Nitroglycerin] 0.4 mg SL UD Nicotine [Nicotine Patch] 21 mg TOP DAILY Prednisone 10 mg [Deltasone 10 mg] 10 mg PO DAILY Lisinopril [Lisinopril] 10 mg PO DAILY Famotidine 20 mg [Pepcid 20 MG] 20 mg PO BID Clonazepam [Clonazepam] 0.25 mg PO HS Atorvastatin Calcium [Lipitor 40Mg] 40 mg PO HS Aspirin [Aspirin EC] 1 tab PO DAILY Albuterol/Ipratropium 3ml Neb* [DUONEB 0.5-3 MG/3 ml Neb] 3 ml IH TID Metoprolol Tartrate [Metoprolol Tartrate] 25 mg PO BID Follow up with: MARYELLEN MEDINA MD [Primary Care Provider] - Call for Appointment
== END 2017-04-18 14:05 | disposition home or self-care (01) ==
LOC: MED SURG 12:20
PROVIDERS: ADMIT General Practice; ATTEND General Practice
DX: R10.13 Epigastric pain (principal); K26.4 Chronic or unspecified duodenal ulcer with hemorrhage; I25.10 Atherosclerotic heart disease of native coronary artery without angina pectoris; J44.9 Chronic obstructive pulmonary disease, unspecified; I73.9 Peripheral vascular disease, unspecified; Z79.899 Other long term (current) drug therapy; I71.4 Abdominal aortic aneurysm, without rupture
CPT/HCPCS: 36415; 74176; 80053; 81002; 82150; 83605; 83690; 84484; 85025; 87086; 94150; 94640; 94760; G0378; J2270; J2405; A9270-GY

== ENCOUNTER 2017-04-20 18:39 | Inpatient (IN) | payer MEDICARE ==
[2017-04-20] MEDS ORDERED: Sodium Chloride 0.9% 1000 ML 1,000 ML IV SCH (18:45)
[2017-04-20] MEDS ORDERED: Sodium Chloride 0.9% 1000 ML 1,000 ML ONE (19:36)
[2017-04-20 19:50] LABS: BASOPHIL % 0.2 % (0.0-0.4); Basophil (Absolute #) 0.03 (0-0.4); Eosinophil % 0.2 % (0.00-5.0); Eosinophil (Absolute #) 0.03 (0-0.5); Granulocyte Absolute (ANC) 13.41 (1.4-6.9); Granulocytes % 89.6 % (36.0-66.0); Hematocrit 47.1 % (35-47); Hemoglobin 15.5 gm/dl (12.0-16.0); Lymphocyte (Absolute #) 0.76 (1.0-4.6); Lymphocytes % 5.1 % (24.0-44.0); Mean Cell Volume 90.1 fl (78-100); Mean Corpuscular Hemoglobin 29.6 pg (26-32); Mean Corpuscular Hgb Concent. 32.9 g/dl (32-36); Mean Platelet Volume 9.6 fl (6-9.5); Monocyte (Absolute #) 0.73 (0.0-1.3); Monocytes % 4.9 % (0.0-12.0); Platelet Count 242 K/mm3 (150-450); Red Blood Count 5.23 M/mm3 (4.1-5.4); Red Cell Distribution Width 14.1 % (11.5-14.0)
[2017-04-20 19:55] LABS: Appearance CLOUDY (CLEAR)
[2017-04-20 19:56] LABS: Bacteria MODERATE /HPF (NEGATIVE); Bilirubin NEGATIVE (NEGATIVE); Blood 250 Ery/ul (0-5); Glucose NEGATIVE (NEGATIVE); Ketones NEGATIVE (NEGATIVE); Leukocyte Esterase 2+ (NEGATIVE); Nitrite POSITIVE (NEGATIVE); Protein,Urine Dip 30 (Negative); Urobilinogen NORMAL mg/dL (0-1); WBC 50-100 /HPF (0-5)
[2017-04-20] MEDS ORDERED: SUBLIMAZE 100 MCG/2 ML IV ONE ×2 (20:10→22:51)
[2017-04-20 20:13] LABS: INR 1.11 (0.8-3.0)
[2017-04-20] MEDS ORDERED: SUBLIMAZE 100 MCG/2 ML ONE ×2 (20:13→22:53)
[2017-04-20 20:14] LABS: ALKALINE PHOSPHATASE 99 U/L (38-126); ANION GAP 12.6 MEQ/L (5-15); BLOOD UREA NITROGEN 18 mg/dL (7-17); CHLORIDE 99 mmol/L (98-107); Calcium 9.5 mg/dL (8.4-10.2); Carbon Dioxide 31 mmol/L (22-30); Creatinine 1 0.73 mg/dL (0.52-1.04); Glucose 112 mg/dL (74-106); Potassium 3.1 mmol/L (3.5-5.1); SGOT/AST 45 U/L (14-36); SGPT/ALT 33 U/L (0-35); SODIUM 139 mmol/L (137-145); Total Protein 7.1 g/dL (6.3-8.2)
--- NOTE | 2017-04-20 20:15 | ERPHSYRPT ---
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 loc for a couple seconds. Triage Nursing Assessment: pt states she is having trouble making the thoughts she has into words beginning a week ago while in [facility] for a heart attack last week which resulted from flu and pneumonia. today pt presents with dizziness which led to syncopal episode witnessed by daughter. pt states what came out of her "bottom may have been dark black poop. pt states it could have been blood. pt poor historian and unsure of sx. alert and oriented x2. Physician History: ABOUT 2 HOURS AGO PT BECAME DIAPHORETIC WITH EYES POINTING OUT TO THE SIDE AND 2 SECONDS OF GENERALIZED SEIZURE ACTIVITY AND IMMEDIATELY AFTER HAD A 5-7 MINUTE LOSS OF CONSCIOUSNESS. PT WAS PULSELESS ACCORDING TO DAUGHTER WHO GAVE A STERNAL RUB AND PT REGAINED CONSCIOUSNESS. PT C/O NAUSEA AND A FRONTAL HEADACHE. Allergies/Adverse Reactions: metronidazole [From Flagyl] Adverse Reaction (Severe, Verified 04/17/17 12:54) Home Medications: Albuterol/Ipratropium 3ml Neb* [DUONEB 0.5-3 MG/3 ml Neb] 3 ml IH TID [History] Aspirin [Aspirin EC] 1 tab PO DAILY 04/17/17 [History] Atorvastatin Calcium [Lipitor 40Mg] 40 mg PO HS 04/17/17 [History] Clonazepam [Clonazepam] 0.25 mg PO HS 04/17/17 [History] Famotidine 20 mg [Pepcid 20 MG] 20 mg PO BID 04/17/17 [History] Lisinopril [Lisinopril] 10 mg PO DAILY 04/17/17 [History] Metoprolol Tartrate [Metoprolol Tartrate] 25 mg PO BID 04/17/17 [History] Nicotine [Nicotine Patch] 21 mg TOP DAILY 04/17/17 [History] Nitroglycerin [Nitroglycerin] 0.4 mg SL UD 04/17/17 [History] Prednisone 10 mg [Deltasone 10 mg] 10 mg PO DAILY 04/17/17 [History] Hx Tetanus, Diphtheria Vaccination/Date Given: No Hx Influenza Vaccination/Date Given: No Hx Pneumococcal Vaccination/Date Given: No Immunizations Up to Date: No - Review of Systems Abdominal/Gastrointestinal: Nausea Neurological: Headache, Seizure, Other (LOC) All Other Systems: Reviewed and Negative - Past Medical History Pertinent Past Medical History: Yes Neurological History: No Pertinent History ENT History: Cataracts Cardiac History: High Cholesterol, Hypertension, Myocardial Infarction ([place]) Respiratory History: CHF, COPD Musculoskeletal History: Arthritis, Fractures GI Medical History: No Pertinent History, Ulcer History: No Pertinent History Psycho-Social History: Anxiety Female Reproductive Disorders: No Pertinent History - Past Surgical History Past Surgical History: No Other Surgical History: L LE fx - Social History Smoking Status: Never smoker How long have you smoked: 60 Exposure to second hand smoke: No Drug Use: none Patient Lives Alone: No - Nursing Vital Signs Nursing Vital Signs: Initial Vital Signs Temperature 98.3 F 04/20/17 18:40 Pulse Rate 86 04/20/17 18:40 Respiratory Rate 18 04/20/17 18:40 Blood Pressure 181/88 04/20/17 18:40 O2 Sat by Pulse Oximetry 97 04/20/17 18:40 Pain Scale Pain Intensity 4 - Physical Exam General Appearance: alert Eye Exam: PERRL/EOMI Ears, Nose, Throat Exam: TMs normal, pharynx normal, moist mucous membranes Neck Exam: normal inspection Respiratory Exam: lungs clear Cardiovascular Exam: normal heart sounds Gastrointestinal/Abdomen Exam: soft, normal bowel sounds Back Exam: normal range of motion Extremity Exam: No pedal edema Neurologic Exam: alert, oriented x 3, cooperative, sensation nml, other (NO BABINSKI PRESENT), No motor deficits, No motor weakness Skin Exam: ecchymosis (BRUISING ON RIGHT FOOT DORSUM(WITHOUT PAIN).) SpO2 Interpretation: normal SpO2: 97 Oxygen Delivery: Room Air - Course Nursing assessment & vital signs reviewed: Yes EKG Interpreted by Me: RATE (90), Sinus Rhythm, NORMAL AXIS, NORMAL INTERVALS - Radiology Exams Chest X-ray Interpretation: Interpreted by me, No Pneumonia - CT Exams Head CT Interpretation: Discussed w/radiologist (MINIMAL RIGHT MAXILLARY SINUS FLUID LEVELING O/W STABLE NON-ACUTE SENILE BRAIN COMPARED TO 09/07/16.) Ordered Tests: Active Orders 24 hr Category Date Time Status Cath for Specimen-Straight STAT Care 04/20/17 18:43 Active EKG-ER Only STAT Care 04/20/17 18:43 Active IV Insertion STAT Care 04/20/17 18:43 Active NPO (ED) STAT Care 04/20/17 18:43 Active Rectal Temperature STAT Care 04/20/17 18:49 Active CHEST 1 VIEW (PORTABLE) Stat Exams 04/20/17 18:43 Taken HEAD WITHOUT CONTRAST [CT] Stat Exams 04/20/17 18:44 Taken CBC W DIFF Stat Lab 04/20/17 19:21 Completed CMP Stat Lab 04/20/17 19:30 Completed CULTURE,URINE Stat Lab 04/20/17 19:21 Received PROTIME WITH INR Stat Lab 04/20/17 19:30 Completed PTT Stat Lab 04/20/17 19:30 Completed TROPONIN Q3H Lab 04/20/17 19:21 Completed TROPONIN Q3H Lab 04/20/17 21:45 Received TROPONIN Q3H Lab 04/21/17 00:45 Ordered TROPONIN Q3H Lab 04/21/17 03:45 Ordered TROPONIN Q3H Lab 04/21/17 06:45 Ordered UA W/ MICROSCOPIC Stat Lab 04/20/17 19:21 Completed Medication Summary Generic Name Dose Route Start Last Admin Trade Name Freq PRN Reason Stop Dose Admin Sodium Chloride 1,000 mls @ 100 mls/hr 04/20/17 18:45 04/20/17 19:38 Sodium Chloride 0.9% 1000 Ml IV 05/20/17 18:44 100 mls/hr .Q10H NELSON Administration Ceftriaxone Sodium/Dextrose 1 g in 50 mls @ 100 mls/hr 04/20/17 22:09 Rocephin 1 Gm-D5w 50 Ml Bag IV 04/20/17 22:38 STAT STA Discontinued Medications Generic Name Dose Route Start Last Admin Trade Name Freq PRN Reason Stop Dose Admin Fentanyl Citrate 25 mcg 04/20/17 20:10 04/20/17 20:14 Sublimaze 100 Mcg/2 Ml IV 04/20/17 20:11 25 mcg STAT ONE Administration Fentanyl Citrate Confirm 04/20/17 20:13 Sublimaze 100 Mcg/2 Ml Administered 04/20/17 20:14 Dose 100 mcg .ROUTE .STK-MED ONE Potassium Bicarbonate 50 meq 04/20/17 22:09 K-Lyte 25 Meq PO 04/20/17 22:10 STAT ONE Lab/Rad Data: Laboratory Result Diagrams 04/20/17 19:21 04/20/17 19:30 Laboratory Results 04/20/17 04/20/17 04/20/17 Range/Units 19:30 19:30 19:21 WBC (4.0-10.5) K/mm3 RBC (4.1-5.4) M/mm3 Hgb (12.0-16.0) gm/dl Hct (35-47) % MCV (78-100) fl MCH (26-32) pg MCHC (32-36) g/dl RDW (11.5-14.0) % Plt Count (150-450) K/mm3 MPV (6-9.5) fl Gran % (36.0-66.0) % Lymphocytes % (24.0-44.0) % Monocytes % (0.0-12.0) % Eosinophils % (0.00-5.0) % Basophils % (0.0-0.4) % Basophils # (0-0.4) INR 1.11 (0.8-3.0) APTT 30.3 (25.3-37.0) SECONDS Sodium 139 (137-145) mmol/L Potassium 3.1 L (3.5-5.1) mmol/L Chloride 99 (98-107) mmol/L Carbon Dioxide 31 H (22-30) mmol/L Anion Gap 12.6 (5-15) MEQ/L BUN 18 H (7-17) mg/dL Creatinine 0.73 (0.52-1.04) mg/dL Estimated GFR > 60 ML/MIN Glucose 112 H (74-106) mg/dL Calcium 9.5 (8.4-10.2) mg/dL Total Bilirubin 0.70 (0.2-1.3) mg/dL AST 45 H (14-36) U/L ALT 33 (0-35) U/L Alkaline Phosphatase 99 (38-126) U/L Troponin I 0.019 (0.000-0.034) ng/mL Serum Total Protein 7.1 (6.3-8.2) g/dL Albumin 4.0 (3.5-5.0) g/dL Ur Collection Type Urine Color (YELLOW) Urine Appearance (CLEAR) Urine pH (5-6) Ur Specific [place] (1.005-1.025) Urine Protein (Negative) Urine Ketones (NEGATIVE) Urine Blood (0-5) Guero/ul Urine Nitrite (NEGATIVE) Urine Bilirubin (NEGATIVE) Urine Urobilinogen (0-1) mg/dL Ur Leukocyte Esterase (NEGATIVE) Urine Microscopic RBC (0-2) /HPF Urine Microscopic WBC (0-5) /HPF Urine Bacteria (NEGATIVE) /HPF Urine Culture Reflexed (NO) Urine Glucose (NEGATIVE) mg/dL Specimen Received 04/20/17 04/20/17 Range/Units 19:21 19:21 WBC 15.0 H (4.0-10.5) K/mm3 RBC 5.23 (4.1-5.4) M/mm3 Hgb 15.5 (12.0-16.0) gm/dl Hct 47.1 H (35-47) % MCV 90.1 (78-100) fl MCH 29.6 (26-32) pg MCHC 32.9 (32-36) g/dl RDW 14.1 H (11.5-14.0) % Plt Count 242 (150-450) K/mm3 MPV 9.6 H (6-9.5) fl Gran % 89.6 H (36.0-66.0) % Lymphocytes % 5.1 L (24.0-44.0) % Monocytes % 4.9 (0.0-12.0) % Eosinophils % 0.2 (0.00-5.0) % Basophils % 0.2 (0.0-0.4) % Basophils # 0.03 (0-0.4) INR (0.8-3.0) APTT (25.3-37.0) SECONDS Sodium (137-145) mmol/L Potassium (3.5-5.1) mmol/L Chloride (98-107) mmol/L Carbon Dioxide (22-30) mmol/L Anion Gap (5-15) MEQ/L BUN (7-17) mg/dL Creatinine (0.52-1.04) mg/dL Estimated GFR ML/MIN Glucose (74-106) mg/dL Calcium (8.4-10.2) mg/dL Total Bilirubin (0.2-1.3) mg/dL AST (14-36) U/L ALT (0-35) U/L Alkaline Phosphatase (38-126) U/L Troponin I (0.000-0.034) ng/mL Serum Total Protein (6.3-8.2) g/dL Albumin (3.5-5.0) g/dL Ur Collection Type CATH Urine Color RED (YELLOW) Urine Appearance CLOUDY (CLEAR) Urine pH 7.0 (5-6) Ur Specific [place] 1.010 (1.005-1.025) Urine Protein 30 (Negative) Urine Ketones NEGATIVE (NEGATIVE) Urine Blood 250 (0-5) Guero/ul Urine Nitrite POSITIVE (NEGATIVE) Urine Bilirubin NEGATIVE (NEGATIVE) Urine Urobilinogen NORMAL (0-1) mg/dL Ur Leukocyte Esterase 2+ (NEGATIVE) Urine Microscopic RBC >100 (0-2) /HPF Urine Microscopic WBC 50-100 (0-5) /HPF Urine Bacteria MODERATE (NEGATIVE) /HPF Urine Culture Reflexed YES (NO) Urine Glucose NEGATIVE (NEGATIVE) mg/dL Specimen Received 04/20/171929 - Progress Discussed with : Lisa (OBS ~ 3999) - Departure Time of Disposition: 22:28 Departure Disposition: Observation Clinical Impression: SYNCOPE, UTI, HYPOKALEMIA, HTN, COPD, ARTHRITIS, ANXIETY Condition: Stable Critical Care Time: No Referrals: MARYELLEN MEDINA MD [Primary Care Provider] -
[2017-04-20 20:16] LABS: PTT 30.3 SECONDS (25.3-37.0)
[2017-04-20] MEDS ORDERED: K-LYTE 25 MEQ PO ONE (22:09)
[2017-04-20] MEDS ORDERED: ROCEPHIN 1 Gm-D5w 50 ml Bag** 1 G/50 ML IVPB IV STA (22:09)
[2017-04-20] MEDS ORDERED: K-LYTE 25 MEQ ONE (22:37)
[2017-04-20] MEDS ORDERED: ROCEPHIN 1 Gm-D5w 50 ml Bag** 1 G/50 ML IVPB IV ONE (22:37)
[2017-04-20] MEDS ORDERED: TYLENOL 325 MG PO PRN (23:22)
[2017-04-20] MEDS ORDERED: Phenergan 25 MG INJ IV PRN (23:22)
[2017-04-21 03:56] LABS: BASOPHIL % 0.3 % (0.0-0.4); Basophil (Absolute #) 0.03 (0-0.4); Eosinophil % 0.4 % (0.00-5.0); Eosinophil (Absolute #) 0.04 (0-0.5); Granulocyte Absolute (ANC) 8.73 (1.4-6.9); Granulocytes % 80.2 % (36.0-66.0); Hematocrit 36.1 % (35-47); Hemoglobin 11.9 gm/dl (12.0-16.0); Lymphocyte (Absolute #) 1.47 (1.0-4.6); Lymphocytes % 13.5 % (24.0-44.0); Mean Cell Volume 91.4 fl (78-100); Mean Corpuscular Hemoglobin 30.1 pg (26-32); Mean Platelet Volume 9.5 fl (6-9.5); Monocyte (Absolute #) 0.61 (0.0-1.3); Monocytes % 5.6 % (0.0-12.0); Platelet Count 220 K/mm3 (150-450); Red Blood Count 3.95 M/mm3 (4.1-5.4); Red Cell Distribution Width 14.1 % (11.5-14.0); White Blood Count 10.9 K/mm3 (4.0-10.5)
[2017-04-21 04:23] LABS: ALBUMIN 2.9 g/dL (3.5-5.0); ALKALINE PHOSPHATASE 65 U/L (38-126); ANION GAP 9.2 MEQ/L (5-15); BLOOD UREA NITROGEN 14 mg/dL (7-17); CHLORIDE 103 mmol/L (98-107); Calcium 8.2 mg/dL (8.4-10.2); Carbon Dioxide 29 mmol/L (22-30); Creatinine 1 0.56 mg/dL (0.52-1.04); Glucose 65 mg/dL (74-106); Potassium 4.1 mmol/L (3.5-5.1); SGOT/AST 33 U/L (14-36); SGPT/ALT 23 U/L (0-35); SODIUM 137 mmol/L (137-145); Total Protein 5.1 g/dL (6.3-8.2)
[2017-04-21] MEDS: Sodium Chloride 0.9% W/ 20 mEq KCl/LITER 1,000 ML IV SCH ×2 (05:24→15:33)
[2017-04-21 07:12] LABS: Hematocrit 34.1 % (35-47); Hemoglobin 11.1 gm/dl (12.0-16.0); Mean Cell Volume 91.9 fl (78-100); Mean Corpuscular Hemoglobin 29.9 pg (26-32); Mean Corpuscular Hgb Concent. 32.6 g/dl (32-36); Mean Platelet Volume 9.9 fl (6-9.5); Platelet Count 206 K/mm3 (150-450); Red Blood Count 3.71 M/mm3 (4.1-5.4); Red Cell Distribution Width 14.2 % (11.5-14.0); White Blood Count 9.8 K/mm3 (4.0-10.5)
--- NOTE | 2017-04-21 09:04 | XRAY ---
Indication: Syncope. Comparison: April 05, 2017. Portable chest remains hyperinflated and is now clear. Heart and mediastinal structures within normal limits. No new/acute findings.
--- NOTE | 2017-04-21 09:06 | XRAY ---
Indication: Syncope. Multiple contiguous axial images obtained through the head. Comparison: September 08, 2011. Again age-appropriate global atrophy and moderate periventricular degenerative micro-ischemia bilaterally. No acute intracranial hemorrhage, abnormal extra-axial fluid collection, or mass effect. Fourth ventricle is midline without hydrocephalus. Bony calvarium intact. Tiny fluid leveling in the right maxillary and right sphenoid sinuses. Mastoid air cells are clear. Impression: Nonacute senile brain. Incidental paranasal sinus disease. CT DI 68.32
[2017-04-21] MEDS ORDERED: Nitrostat 0.4 MG Tablet SL PRN (09:30)
[2017-04-21] MEDS: Nicoderm CQ 21 MG TOP SCH (09:54)
[2017-04-21] MEDS: ECOTRIN 81 MG PO SCH (09:54)
[2017-04-21] MEDS: Zestril 10 MG PO SCH (09:54)
[2017-04-21] MEDS: Pepcid 20 MG PO SCH ×2 (09:54→21:18)
[2017-04-21] MEDS: Lopressor 25MG Tab PO SCH ×2 (09:54→21:18)
[2017-04-21] MEDS: DUONEB 0.5-3 MG/3 ml Neb IH SCH ×3 (10:05→19:13)
[2017-04-21] MEDS ORDERED: DUONEB 0.5-3 MG/3 ml Neb IH ONE (10:08)
--- NOTE | 2017-04-21 13:02 | PCM.HP ---
History of Present Illness - Chief Complaint Chief Complaint: SYNCOPE; UTI; HYPOKALEMIA. History of Present Illness: is a 81 year old female states she is having trouble making the thoughts she has into words beginning a week ago while in [facility] for a heart attack last week which resulted from flu and pneumonia. today pt presents with dizziness which led to syncopal episode witnessed by daughter. pt states what came out of her "bottom may have been dark black poop. pt states it could have been blood. - Review of Systems Constitutional: No Fever, No Chills Eyes: No Symptoms Ears, Nose, & Throat: No Symptoms Respiratory: No Cough, No Short Of Breath Cardiac: No Chest Pain, No Edema, No Syncope Abdominal/Gastrointestinal: No Abdominal Pain, No Nausea, No Vomiting, No Diarrhea Genitourinary Symptoms: Dysuria Musculoskeletal: No Back Pain, No Neck Pain Skin: No Rash Neurological: No Dizziness, No Focal Weakness, No Sensory Changes Psychological: No Symptoms Endocrine: No Symptoms Hematologic/Lymphatic: No Symptoms Immunological/Allergic: No Symptoms Medications & Allergies Home Medications: Home Medication List Albuterol/Ipratropium 3ml Neb* [DUONEB 0.5-3 MG/3 ml Neb] 3 ml IH TID [History Confirmed 04/21/17] Aspirin [Aspirin EC] 1 tab PO DAILY 04/17/17 [History Confirmed 04/21/17] Atorvastatin Calcium [Lipitor 40Mg] 40 mg PO DAILY 04/17/17 [History Confirmed 04/21/17] Clonazepam [Clonazepam] 0.25 mg PO HS 04/17/17 [History Confirmed 04/21/17] Famotidine 20 mg [Pepcid 20 MG] 20 mg PO BID 04/17/17 [History Confirmed 04/21/17] Lisinopril [Lisinopril] 10 mg PO DAILY 04/17/17 [History Confirmed 04/21/17] Nicotine [Nicotine Patch] 21 mg TOP DAILY 04/17/17 [History Confirmed 04/21/17] Nitroglycerin [Nitroglycerin] 0.4 mg SL UD 04/17/17 [History Confirmed 04/21/17] Metoprolol Tartrate 25 mg [Lopressor 25MG Tab] 25 mg PO BID 04/21/17 [ History Confirmed 04/21/17] Allergies/Adverse Reactions: Allergies Allergy/AdvReac Type Severity Reaction Status Date / Time metronidazole [From Flagyl] AdvReac Severe Verified 04/17/17 12:54 - Past Medical History Past Medical History: Yes Neurological History: No Pertinent History ENT History: Cataracts Cardiac History: High Cholesterol, Hypertension, Myocardial Infarction ([place]), Peripheral Vascular Disease Respiratory History: CHF, COPD Endocrine Medical History: No Pertinent History Musculoskelatal History: Arthritis, Fractures GI Medical History: No Pertinent History, Ulcer History: No Pertinent History Pyscho-Social History: Anxiety Reproductive Disorders: No Pertinent History - Female History Are you now?: No - Past Surgical History Past Surgical History: No Neuro Surgical History: No Pertinent History Cardiac History: Cardiac Catheterization Respiratory Surgery: No Pertinent History GI Surgical History: No Pertinent History Genitourinary Surgical Hx: No Pertinent History Musculskeletal Surgical Hx: No Pertinent History Female Surgical History: No Pertinent History Other Surgical History: L LE fx - Social History Smoking Status: Current every day smoker How long have you smoked: 60 Exposure to second hand smoke: Yes Alcohol: None Drug Use: none - Physical Exam Vital Signs: Vital Signs - 24 hr Temp Pulse Resp BP BP Pulse Ox 04/21/17 11:51 98.3 F 91 H 16 177/77 95 04/21/17 10:13 95 H 16 93 L 04/21/17 08:00 98.8 F 94 H 18 138/71 95 04/21/17 07:03 85 18 93 L 04/21/17 05:51 93 L 04/21/17 04:00 20 04/21/17 03:23 98.5 F 100 H 20 142/67 93 L 04/20/17 23:35 98.1 F 93 H 17 176/79 97 04/20/17 23:22 97 04/20/17 22:28 97 04/20/17 22:12 89 16 129/64 98 04/20/17 21:10 98 H 16 168/66 95 04/20/17 18:40 98.3 F 86 18 181/88 97 General Appearance: no apparent distress, alert Neurologic Exam: alert, oriented x 3, cooperative, normal mood/affect, nml cerebellar function, nml station & gait, sensation nml, No motor deficits Eye Exam: PERRL/EOMI, eyes nml inspection Ears, Nose, Throat Exam: normal ENT inspection, TMs normal, pharynx normal, moist mucous membranes Neck Exam: normal inspection, non-tender, supple, full range of motion Respiratory Exam: normal breath sounds, lungs clear, No respiratory distress Cardiovascular Exam: regular rate/rhythm, normal heart sounds, normal peripheral pulses Gastrointestinal/Abdomen Exam: soft, normal bowel sounds, No tenderness, No mass Back Exam: normal inspection, normal range of motion, No CVA tenderness, No vertebral tenderness Extremity Exam: normal inspection, normal range of motion, pelvis stable Skin Exam: normal color, warm, dry, No rash Lymphatic Exam: No adenopathy Results - Labs Lab/Micro Results: Lab Results-Last 24 Hours 04/21/17 04/21/17 04/21/17 Range/Units 00:58 03:54 03:54 WBC 10.9 H (4.0-10.5) K/mm3 RBC 3.95 L (4.1-5.4) M/mm3 Hgb 11.9 L (12.0-16.0) gm/dl Hct 36.1 (35-47) % MCV 91.4 (78-100) fl MCH 30.1 (26-32) pg MCHC 33.0 (32-36) g/dl RDW 14.1 H (11.5-14.0) % Plt Count 220 (150-450) K/mm3 MPV 9.5 (6-9.5) fl Gran % 80.2 H (36.0-66.0) % Lymphocytes % 13.5 L (24.0-44.0) % Monocytes % 5.6 (0.0-12.0) % Eosinophils % 0.4 (0.00-5.0) % Basophils % 0.3 (0.0-0.4) % Basophils # 0.03 (0-0.4) Sodium (137-145) mmol/L Potassium (3.5-5.1) mmol/L Chloride (98-107) mmol/L Carbon Dioxide (22-30) mmol/L Anion Gap (5-15) MEQ/L BUN (7-17) mg/dL Creatinine (0.52-1.04) mg/dL Estimated GFR ML/MIN Glucose (74-106) mg/dL Calcium (8.4-10.2) mg/dL Total Bilirubin (0.2-1.3) mg/dL AST (14-36) U/L ALT (0-35) U/L Alkaline Phosphatase (38-126) U/L Troponin I 0.017 0.020 (0.000-0.034) ng/mL Serum Total Protein (6.3-8.2) g/dL Albumin (3.5-5.0) g/dL 04/21/17 04/21/17 04/21/17 Range/Units 03:54 06:52 06:59 WBC 9.8 (4.0-10.5) K/mm3 RBC 3.71 L (4.1-5.4) M/mm3 Hgb 11.1 L (12.0-16.0) gm/dl Hct 34.1 L (35-47) % MCV 91.9 (78-100) fl MCH 29.9 (26-32) pg MCHC 32.6 (32-36) g/dl RDW 14.2 H (11.5-14.0) % Plt Count 206 (150-450) K/mm3 MPV 9.9 H (6-9.5) fl Gran % (36.0-66.0) % Lymphocytes % (24.0-44.0) % Monocytes % (0.0-12.0) % Eosinophils % (0.00-5.0) % Basophils % (0.0-0.4) % Basophils # (0-0.4) Sodium 137 (137-145) mmol/L Potassium 4.1 (3.5-5.1) mmol/L Chloride 103 (98-107) mmol/L Carbon Dioxide 29 (22-30) mmol/L Anion Gap 9.2 (5-15) MEQ/L BUN 14 (7-17) mg/dL Creatinine 0.56 (0.52-1.04) mg/dL Estimated GFR > 60 ML/MIN Glucose 65 L (74-106) mg/dL Calcium 8.2 L (8.4-10.2) mg/dL Total Bilirubin 0.40 (0.2-1.3) mg/dL AST 33 (14-36) U/L ALT 23 (0-35) U/L Alkaline Phosphatase 65 (38-126) U/L Troponin I 0.021 (0.000-0.034) ng/mL Serum Total Protein 5.1 L (6.3-8.2) g/dL Albumin 2.9 L (3.5-5.0) g/dL - Other Procedures and Tests Respiratory Therapy 04/21/17 13:00 Respiratory Nebulizer TID Assessment/Plan (1) TIA (transient ischemic attack) Current Visit: Yes Status: Acute Qualifiers: Transient cerebral ischemia type: unspecified Qualified Code(s): G45.9 - Transient cerebral ischemic attack, unspecified (2) Seizure as late effect of cerebrovascular accident (CVA) Current Visit: Yes Status: Acute Code(s): I69.398 - OTHER SEQUELAE OF CEREBRAL INFARCTION; R56.9 - UNSPECIFIED CONVULSIONS (3) Syncope and collapse Current Visit: Yes Status: Acute Code(s): R55 - SYNCOPE AND COLLAPSE (4) UTI (urinary tract infection) Current Visit: Yes Status: Acute Qualifiers: Urinary tract infection type: acute pyelonephritis Qualified Code(s): N10 - Acute pyelonephritis Code(s): N39.0 - URINARY TRACT INFECTION, SITE NOT SPECIFIED
[2017-04-21] MEDS ORDERED: Klonopin 0.5 MG PO SCH (22:00)
[2017-04-21] MEDS ORDERED: ROCEPHIN 1 Gm-D5w 50 ml Bag** 1 G/50 ML IVPB IV SCH (22:00)
[2017-04-21] MEDS ORDERED: LIPITOR 40MG PO SCH (22:00)
[2017-04-22] MEDS: Sodium Chloride 0.9% W/ 20 mEq KCl/LITER 1,000 ML IV SCH (02:26)
[2017-04-22 05:06] VITALS: O2SAT 96
[2017-04-22] MEDS: DUONEB 0.5-3 MG/3 ml Neb IH SCH (07:26)
[2017-04-22] MEDS: Pepcid 20 MG PO SCH (09:35)
[2017-04-22] MEDS: ECOTRIN 81 MG PO SCH (09:35)
[2017-04-22] MEDS: Lopressor 25MG Tab PO SCH (09:36)
[2017-04-22] MEDS: Nicoderm CQ 21 MG TOP SCH (09:36)
[2017-04-22] MEDS: Zestril 10 MG PO SCH (09:36)
[2017-04-22 12:05] VITALS: BP 159/77; PULSE 76
== END 2017-04-22 14:50 | disposition home or self-care (01) | DRG 69 ==
LOC: ED 18:39 → MED SURG 23:12 → OBSVTOIN 04-21 13:00
PROVIDERS: ADMIT General Practice; ATTEND General Practice
DX: G45.9 Transient cerebral ischemic attack, unspecified (principal); N39.0 Urinary tract infection, site not specified; R56.9 Unspecified convulsions; I69.398 Other sequelae of cerebral infarction; R55 Syncope and collapse; E87.6 Hypokalemia; I10 Essential (primary) hypertension; J44.9 Chronic obstructive pulmonary disease, unspecified; M19.90 Unspecified osteoarthritis, unspecified site; F41.9 Anxiety disorder, unspecified; Z79.82 Long term (current) use of aspirin; Z79.899 Other long term (current) drug therapy
CPT/HCPCS: 36000; 36415; 70450; 71045; 80053; 81000; 84484; 85025; 85027; 85610; 85730; 87077; 87086; 87186; 93005; 93268; 94150; 94640; 94760; 99285; G0378; J0696; J3010; P9612; A9270-GY

== ENCOUNTER 2017-08-22 00:19 | Emergency (ER) | payer MEDICARE ==
[2017-08-22 00:55] LABS: BASOPHIL % 0.6 % (0.0-0.4); Basophil (Absolute #) 0.05 (0-0.4); Eosinophil % 1.4 % (0.00-5.0); Eosinophil (Absolute #) 0.12 (0-0.5); Granulocyte Absolute (ANC) 5.66 (1.4-6.9); Granulocytes % 66.5 % (36.0-66.0); Hemoglobin 13.4 gm/dl (12.0-16.0); Lymphocyte (Absolute #) 1.71 (1.0-4.6); Lymphocytes % 20.1 % (24.0-44.0); Mean Cell Volume 89.7 fl (78-100); Mean Corpuscular Hemoglobin 29.3 pg (26-32); Mean Corpuscular Hgb Concent. 32.7 g/dl (32-36); Mean Platelet Volume 9.7 fl (6-9.5); Monocyte (Absolute #) 0.97 (0.0-1.3); Monocytes % 11.4 % (0.0-12.0); Platelet Count 293 K/mm3 (150-450); Red Blood Count 4.57 M/mm3 (4.1-5.4); Red Cell Distribution Width 13.4 % (11.5-14.0); White Blood Count 8.5 K/mm3 (4.0-10.5)
[2017-08-22 01:07] LABS: INR 1.01 (0.8-3.0)
[2017-08-22] MEDS ORDERED: Catapres 0.1 MG PO ONE (01:10)
[2017-08-22] MEDS ORDERED: Catapres 0.1 MG ONE (01:13)
--- NOTE | 2017-08-22 01:14 | ERPHSYRPT ---
- History of Present Illness Time Seen by Provider: 08/22/17 00:49 Source: family Exam Limitations: other (dementia) Patient Subjective Stated Complaint: slid off toilet and family was concerned due to HTN Triage Nursing Assessment: Pt A&O x3, c/o of sliding off of the toilet and stated that she did not hurt self, hx of HTN and so family was concerned, BP 191 /86, no edema, no bruising, denies pain, pulses normal, no difficulty with strength, PERRL Physician History: According to her family, she slipped off the toilet tonight, hit her head. Arriving EMS took her blood pressure, it was 180 systolic, family requested her to be transferred here. She denies any injury or complaints, no headaches, vomiting, chest pain, SOB, other complaints, she states, she is comfortable, she has a history of "mild" Dementia, but she is verbal and has limited recollection of the accident. Timing/Duration: today Severity: mild Modifying Factors: Improves With: nothing Associated Symptoms: denies symptoms Allergies/Adverse Reactions: metronidazole [From Flagyl] Adverse Reaction (Severe, Verified 08/22/17 00:32) Home Medications: Albuterol/Ipratropium 3ml Neb* [DUONEB 0.5-3 MG/3 ml Neb] 3 ml IH TID PRN 01/23 [History] Aspirin [Aspirin EC] 1 tab PO DAILY 04/17/17 [History] Lisinopril 20 mg PO BID 04/17/17 [History] Nicotine [Nicotine Patch] 21 mg TOP DAILY 04/17/17 [History] Nitroglycerin 0.4 mg SL UD PRN 04/17/17 [History] clonazePAM [Clonazepam] 0.5 mg PO UD PRN 04/17/17 [History] Metoprolol Tartrate 25 mg [Lopressor 25MG Tab] 50 mg PO BID 04/21/17 [ History] Clopidogrel Bisulfate [Clopidogrel] 75 mg PO DAILY 08/22/17 [History] Haloperidol 5 mg PO HS 08/22/17 [History] Mirtazapine 15 mg PO HS 08/22/17 [History] cloNIDine HCl [Clonidine HCl] 0.1 mg PO UD PRN 08/22/17 [History] Hx Tetanus, Diphtheria Vaccination/Date Given: No Hx Influenza Vaccination/Date Given: No Hx Pneumococcal Vaccination/Date Given: No - Review of Systems Constitutional: No Symptoms All Other Systems: Unable due to dementia - Past Medical History Pertinent Past Medical History: Yes Neurological History: No Pertinent History ENT History: Cataracts Cardiac History: High Cholesterol, Hypertension, Myocardial Infarction ([place]), Peripheral Vascular Disease Respiratory History: CHF, COPD Endocrine Medical History: No Pertinent History Musculoskeletal History: Arthritis, Fractures GI Medical History: No Pertinent History, Ulcer History: No Pertinent History Psycho-Social History: Anxiety Female Reproductive Disorders: No Pertinent History - Past Surgical History Past Surgical History: Yes Neuro Surgical History: No Pertinent History Cardiac: Cardiac Catheterization Respiratory: No Pertinent History Gastrointestinal: No Pertinent History Genitourinary: No Pertinent History Musculoskeletal: Orthopedic Surgery Female Surgical History: No Pertinent History Other Surgical History: L LE fx - Social History Smoking Status: Former smoker How long have you smoked: 60 Exposure to second hand smoke: No Drug Use: none Patient Lives Alone: No - Nursing Vital Signs Nursing Vital Signs: Initial Vital Signs Temperature 98.4 F 08/22/17 00:22 Pulse Rate 65 08/22/17 00:22 Respiratory Rate 22 08/22/17 00:22 Blood Pressure 191/86 08/22/17 00:22 O2 Sat by Pulse Oximetry 95 08/22/17 00:22 Pain Scale Pain Intensity 0 - Physical Exam General Appearance: no apparent distress Eye Exam: PERRL/EOMI, eyes nml inspection Ears, Nose, Throat Exam: normal ENT inspection, pharynx normal, moist mucous membranes Neck Exam: normal inspection, non-tender, supple, No mass, No carotid bruit, No JVD Respiratory Exam: normal breath sounds, lungs clear, airway intact, No chest tenderness Cardiovascular Exam: regular rate/rhythm, normal heart sounds, normal peripheral pulses, No murmur Gastrointestinal/Abdomen Exam: soft, normal bowel sounds, No tenderness, No distention, No mass, No guarding, No ecchymosis, No organomegaly Back Exam: normal inspection, No CVA tenderness, No vertebral tenderness Extremity Exam: normal inspection, pelvis stable, No deformities, No pedal edema Neurologic Exam: alert, cooperative, normal mood/affect Skin Exam: normal color, warm, dry, No rash Lymphatic Exam: No adenopathy SpO2 Interpretation: normal SpO2: 95 Oxygen Delivery: Room Air - Course Nursing assessment & vital signs reviewed: Yes EKG Interpreted by Me: RATE (65/min), NORMAL AXIS, NORMAL INTERVALS, Non- specific ST Changes Ordered Tests: Active Orders 24 hr Category Date Time Status Title Closer STAT Care 08/22/17 00:50 Active Cath for Specimen-Straight STAT Care 08/22/17 01:09 Active EKG-ER Only STAT Care 08/22/17 00:49 Active IV Insertion STAT Care 08/22/17 00:49 Active CERVICAL SPINE WO CONTRAST [CT] Stat Exams 08/22/17 01:06 Taken CHEST 1 VIEW (PORTABLE) Stat Exams 08/22/17 00:49 Taken HEAD WITHOUT CONTRAST [CT] Stat Exams 08/22/17 01:06 Taken CBC W DIFF Stat Lab 08/22/17 00:30 Completed CK-Creatinine Phosphokinase Stat Lab 08/22/17 00:30 Completed CMP Stat Lab 08/22/17 00:30 Completed CULTURE,URINE Stat Lab 08/22/17 01:24 Received NT PRO BNP Stat Lab 08/22/17 00:30 Completed PROTIME WITH INR Stat Lab 08/22/17 00:30 Completed TROPONIN Q3H Lab 08/22/17 00:30 Completed TROPONIN Q3H Lab 08/22/17 04:00 Ordered TROPONIN Q3H Lab 08/22/17 07:00 Ordered TROPONIN Q3H Lab 08/22/17 10:00 Ordered TROPONIN Q3H Lab 08/22/17 13:00 Ordered UA W/ MICROSCOPIC Stat Lab 08/22/17 01:24 Completed Medication Summary Discontinued Medications Generic Name Dose Route Start Last Admin Trade Name Joseq PRN Reason Stop Dose Admin Clonidine 0.1 mg 08/22/17 01:10 08/22/17 02:16 Catapres 0.1 Mg PO 08/22/17 01:11 0.1 mg STAT ONE Administration Clonidine Confirm 08/22/17 01:13 Catapres 0.1 Mg Administered 08/22/17 01:14 Dose 0.1 mg .ROUTE .STK-MED ONE Lab/Rad Data: Laboratory Result Diagrams 08/22/17 00:30 08/22/17 00:30 Laboratory Results 08/22/17 08/22/17 08/22/17 Range/Units 01:24 00:30 00:30 WBC (4.0-10.5) K/mm3 RBC (4.1-5.4) M/mm3 Hgb (12.0-16.0) gm/dl Hct (35-47) % MCV (78-100) fl MCH (26-32) pg MCHC (32-36) g/dl RDW (11.5-14.0) % Plt Count (150-450) K/mm3 MPV (6-9.5) fl Gran % (36.0-66.0) % Eos # (Auto) (0-0.5) Absolute Lymphs (auto) (1.0-4.6) Absolute Monos (auto) (0.0-1.3) Lymphocytes % (24.0-44.0) % Monocytes % (0.0-12.0) % Eosinophils % (0.00-5.0) % Basophils % (0.0-0.4) % Absolute Granulocytes (1.4-6.9) Basophils # (0-0.4) PT 11.7 (9.95-12.35) SECONDS INR 1.01 (0.8-3.0) Sodium (137-145) mmol/L Potassium (3.5-5.1) mmol/L Chloride (98-107) mmol/L Carbon Dioxide (22-30) mmol/L Anion Gap (5-15) MEQ/L BUN (7-17) mg/dL Creatinine (0.52-1.04) mg/dL Estimated GFR ML/MIN Glucose (74-106) mg/dL Calcium (8.4-10.2) mg/dL Total Bilirubin (0.2-1.3) mg/dL AST (14-36) U/L ALT (0-35) U/L Alkaline Phosphatase (38-126) U/L Creatine Kinase (30-135) U/L Troponin I < 0.012 (0.000-0.034) ng/mL NT-Pro-B Natriuret Pep (0-1800) pg/mL Serum Total Protein (6.3-8.2) g/dL Albumin (3.5-5.0) g/dL Ur Collection Type CCMS Urine Color YELLOW (YELLOW) Urine Appearance CLEAR (CLEAR) Urine pH 6.0 (5-6) Ur Specific [place] 1.015 (1.005-1.025) Urine Protein NEGATIVE (Negative) Urine Ketones NEGATIVE (NEGATIVE) Urine Blood TRACE NON-HEM (0-5) Guero/ul Urine Nitrite NEGATIVE (NEGATIVE) Urine Bilirubin NEGATIVE (NEGATIVE) Urine Urobilinogen NORMAL (0-1) mg/dL Ur Leukocyte Esterase 1+ (NEGATIVE) Urine Microscopic RBC 0-2 (0-2) /HPF Urine Microscopic WBC 10-15 (0-5) /HPF Ur Epithelial Cells RARE (FEW) /HPF Urine Bacteria RARE (NEGATIVE) /HPF Urine Culture Reflexed YES (NO) Urine Glucose NEGATIVE (NEGATIVE) mg/dL Specimen Received 08-22-17 0150 08/22/17 08/22/17 Range/Units 00:30 00:30 WBC 8.5 (4.0-10.5) K/mm3 RBC 4.57 (4.1-5.4) M/mm3 Hgb 13.4 (12.0-16.0) gm/dl Hct 41.0 (35-47) % MCV 89.7 (78-100) fl MCH 29.3 (26-32) pg MCHC 32.7 (32-36) g/dl RDW 13.4 (11.5-14.0) % Plt Count 293 (150-450) K/mm3 MPV 9.7 H (6-9.5) fl Gran % 66.5 H (36.0-66.0) % Eos # (Auto) 0.12 (0-0.5) Absolute Lymphs (auto) 1.71 (1.0-4.6) Absolute Monos (auto) 0.97 (0.0-1.3) Lymphocytes % 20.1 L (24.0-44.0) % Monocytes % 11.4 (0.0-12.0) % Eosinophils % 1.4 (0.00-5.0) % Basophils % 0.6 (0.0-0.4) % Absolute Granulocytes 5.66 (1.4-6.9) Basophils # 0.05 (0-0.4) PT (9.95-12.35) SECONDS INR (0.8-3.0) Sodium 140 (137-145) mmol/L Potassium 3.7 (3.5-5.1) mmol/L Chloride 101 (98-107) mmol/L Carbon Dioxide 30 (22-30) mmol/L Anion Gap 12.6 (5-15) MEQ/L BUN 27 H (7-17) mg/dL Creatinine 0.85 (0.52-1.04) mg/dL Estimated GFR > 60.0 ML/MIN Glucose 124 H (74-106) mg/dL Calcium 10.0 (8.4-10.2) mg/dL Total Bilirubin 0.20 (0.2-1.3) mg/dL AST 30 (14-36) U/L ALT 11 (0-35) U/L Alkaline Phosphatase 95 (38-126) U/L Creatine Kinase 23 L (30-135) U/L Troponin I (0.000-0.034) ng/mL NT-Pro-B Natriuret Pep 995 (0-1800) pg/mL Serum Total Protein 7.0 (6.3-8.2) g/dL Albumin 4.3 (3.5-5.0) g/dL Ur Collection Type Urine Color (YELLOW) Urine Appearance (CLEAR) Urine pH (5-6) Ur Specific [place] (1.005-1.025) Urine Protein (Negative) Urine Ketones (NEGATIVE) Urine Blood (0-5) Guero/ul Urine Nitrite (NEGATIVE) Urine Bilirubin (NEGATIVE) Urine Urobilinogen (0-1) mg/dL Ur Leukocyte Esterase (NEGATIVE) Urine Microscopic RBC (0-2) /HPF Urine Microscopic WBC (0-5) /HPF Ur Epithelial Cells (FEW) /HPF Urine Bacteria (NEGATIVE) /HPF Urine Culture Reflexed (NO) Urine Glucose (NEGATIVE) mg/dL Specimen Received - Progress Progress: improved Progress Note: 08/22/17 03:18 BP is controlled now: 119/64, she is comfortable, not febrile, stable, I called Dr Medina, discussed her results, and current condition, he agreed to discharge her to continue Hospice care at home, she was started on PO Keflex, and being discharged home with her family to follow up with Dr Medina in 2-3 days, return if severe headaches, chest pain, vomiting, confusion, fever> 102 F , or blood pressure > 200/120. Discussed with : Lisa Will see patient in: office Counseled pt/family regarding: lab results, diagnosis, need for follow-up, rad results - Departure Time of Disposition: 03:22 Departure Disposition: Home Clinical Impression: UTI (urinary tract infection) Qualifiers: Urinary tract infection type: site unspecified Hematuria presence: without hematuria Qualified Code(s): N39.0 - Urinary tract infection, site not specified Hypertension Qualifiers: Hypertension type: unspecified Qualified Code(s): I10 - Essential (primary) hypertension Condition: Stable Critical Care Time: No Referrals: MARYELLEN MEDINA MD [Primary Care Provider] - Instructions: High Blood Pressure (DC), Urinary Tract Infection, Adult (DC) Additional Instructions: Return if severe headaches, confusion, vomiting or fever> 102 F, or blood pressure > 200/120, follow up with your physician in 2-3 days! Prescriptions: Cephalexin Mh 500 mg [Keflex 500 mg] 500 mg PO TID 7 Days #21 capsule
[2017-08-22 01:25] LABS: ALBUMIN 4.3 g/dL (3.5-5.0); ALKALINE PHOSPHATASE 95 U/L (38-126); ANION GAP 12.6 MEQ/L (5-15); BLOOD UREA NITROGEN 27 mg/dL (7-17); CHLORIDE 101 mmol/L (98-107); CK-Creatinine Phosphokinase 23 U/L (30-135); Carbon Dioxide 30 mmol/L (22-30); Creatinine 1 0.85 mg/dL (0.52-1.04); Glucose 124 mg/dL (74-106); Potassium 3.7 mmol/L (3.5-5.1); SGOT/AST 30 U/L (14-36); SGPT/ALT 11 U/L (0-35); SODIUM 140 mmol/L (137-145)
[2017-08-22 01:33] LABS: NT PRO BNP 995 pg/mL (0-1800)
[2017-08-22 01:53] LABS: Appearance CLEAR (CLEAR); Bilirubin NEGATIVE (NEGATIVE); Blood TRACE NON-HEM Ery/ul (0-5); Glucose NEGATIVE (NEGATIVE); Ketones NEGATIVE (NEGATIVE); Leukocyte Esterase 1+ (NEGATIVE); Nitrite NEGATIVE (NEGATIVE); Protein,Urine Dip NEGATIVE (Negative); Specific Gravity 1.015 (1.005-1.025); Urobilinogen NORMAL mg/dL (0-1)
[2017-08-22 01:54] LABS: Bacteria RARE /HPF (NEGATIVE); Epithelial Cells RARE /HPF (FEW); RBC 0-2 /HPF (0-2)
[2017-08-22 03:17] VITALS: BP 119/64; PULSE 64
[2017-08-22] MEDS ORDERED: KEFLEX 500 MG PO ONE ×2 (03:18→03:22)
[2017-08-22] MEDS ORDERED: KEFLEX 500 MG ONE ×2 (03:20→03:23)
[2017-08-22 03:24] VITALS: O2SAT 95
--- NOTE | 2017-08-22 08:37 | XRAY ---
Indication: Pain following fall. Multiple contiguous axial images obtained through the head without contrast. Comparison: April 20, 2017. Stable age-appropriate global atrophy and moderate periventricular degenerative micro-ischemia bilaterally. No acute intracranial hemorrhage, abnormal extra-axial fluid collection, or mass effect. Fourth ventricle is midline without hydrocephalus. Bony calvarium intact. Visualized paranasal sinuses and mastoid air cells are clear. Impression: Stable nonacute senile brain. Comment: Preliminary interpretation was made by [facility]. No discrepancy. CT DI 50.75
--- NOTE | 2017-08-22 08:41 | XRAY ---
Indication: Pain following fall. Multiple contiguous axial images obtained through the cervical spine. Sagittal and coronal reformatted images obtained. Comparison: None. Age-related osteopenia. Axial images negative for acute fracture, suspicious bony lesions, or spinal canal stenosis. Mild/moderate C3-C7 degenerative endplate spurring and atlantoaxial degenerative changes. Also mild/moderate multilevel bilateral degenerative facet hypertrophy. C7-T1 congenital fusion. Sagittal and coronal reformatted images demonstrates normal alignment. Moderate multilevel degenerative disc space narrowing. No acute compression fracture, subluxation, or jumped facet. Normal appearing craniocervical junction. Visualized noncontrasted soft tissues demonstrates moderate carotid calcifications bilaterally. Lung apices demonstrates mild pulmonary emphysema. CT head reported separately. Impression: 1. Negative for acute fracture/subluxation. 2. Osteopenia and multilevel degenerative changes. 3. Incidental pulmonary emphysema and arteriosclerotic disease. Comment: Preliminary interpretation was made by [facility]. No critical discrepancy. CT DI 28.10
--- NOTE | 2017-08-22 09:16 | XRAY ---
Indication: Cough. Hypertension. Comparison: April 20, 2017. Portable chest remains hyperinflated and clear again with a few incidental calcified granulomas. Heart is not enlarged. Vascularity normal. Bony thorax intact again with mild osteopenia and degenerative changes. Impression: Stable nonacute hyperinflated chest with chronic features.
== END 2017-08-22 03:45 | disposition home or self-care (01) ==
LOC: ED 00:19
DX: N39.0 Urinary tract infection, site not specified (principal); I10 Essential (primary) hypertension; M54.2 Cervicalgia; R51 Headache; W18.12XA Fall from or off toilet with subsequent striking against object, initial encounter; E78.00 Pure hypercholesterolemia, unspecified; I73.9 Peripheral vascular disease, unspecified; I50.9 Heart failure, unspecified; J44.9 Chronic obstructive pulmonary disease, unspecified; M19.90 Unspecified osteoarthritis, unspecified site; Z79.899 Other long term (current) drug therapy; F41.9 Anxiety disorder, unspecified; I25.2 Old myocardial infarction; Z87.891 Personal history of nicotine dependence
CPT/HCPCS: 36000; 36415; 70450; 71045; 72125; 80053; 81000; 82550; 83880; 84484; 85025; 85610; 87077; 87086; 87186; 93005; 93041; 99284; A9270-GY